=== PATIENT | male | born 1950 | race Caucasian/White ===

== ENCOUNTER → 2018-04-15 | Outpatient (CLI) | payer MEDICARE, OTHER ==
[~2018-04-15] MED LIST: ASPI81EC; ATEN50
== END | disposition home or self-care (01) ==
LOC: PLD 11:53 → LAB SHORT 11:53
DX: D22.5 Melanocytic nevi of trunk (principal)
CPT/HCPCS: 88305

== ENCOUNTER 2018-12-10 00:02 | Inpatient (IN) | payer MEDICARE, OTHER ==
[~2018-12-10] VITALS: Ht 182.9 cm; Wt 121.4 kg
[~2018-12-10 00:02] MED LIST changes: -ASPI81EC; +Aspirin EC81 MG PO
[2018-12-10] MEDS ORDERED: Hair, Skin & N1 EACH PO (00:27)
[2018-12-10] MEDS ORDERED: Natural Vita400 UNIT PO (00:28)
[2018-12-10] MEDS ORDERED: PIRO20 PO (00:29)
[2018-12-10] MEDS ORDERED: ATECHL PO (00:29)
[2018-12-10 02:42] LABS: BASOPHILS ABSOLUTE AUTO 0.05 K/mm3 (0.00-0.23); BASOPHILS PERCENT AUTO 0 % (0-2); EOSINOPHILS PERCENT AUTO 0 % (0-6); Hematocrit 40.2 % (37.0-53.0); Hemoglobin 13.6 g/dL (13.5-17.5); IMMATURE GRAN ABSOLUTE AUTO 0.12 K/mm3 (0.00-0.10); IMMATURE GRAN PERCENT AUTO 1 % (0-1); LYMPHOCYTES ABSOLUTE AUTO 2.16 K/mm3 (0.84-5.20); LYMPHOCYTES PERCENT AUTO 17 % (21-46); MONOCYTES ABSOLUTE AUTO 1.65 K/mm3 (0.16-1.47); MONOCYTES PERCENT AUTO 13 % (4-13); Mean Corpuscular HGB 29.3 pg (26.0-34.0); Mean Corpuscular HGB Conc 33.8 g/dL (31.5-36.5); Mean Corpuscular Volume 87 fL (80-100); Mean Platelet Volume 12.4 fL (9.1-12.4); NEUTROPHILS ABSOLUTE AUTO 8.94 K/mm3 (1.96-9.15); NEUTROPHILS PERCENT AUTO 69 % (41-73); Platelet Count 114 K/mm3 (150-400); RDW Coefficient Variation 14.3 % (11.7-14.2); RDW Standard Deviation 45.9 fL (35.1-46.3); Red Blood Cell Count 4.64 M/mm3 (4.30-5.90); White Blood Cell Count 12.92 K/mm3 (4.00-11.30)
[2018-12-10 02:54] LABS: Albumin, Blood 3.2 g/dL (3.4-5.0); Albumin/Globulin Ratio 0.8 (0.8-1.8); Bilirubin, Total 1.4 mg/dL (0.1-1.0); Calcium, Blood 8.4 mg/dL (8.5-10.1); Creatinine, Blood 1.78 mg/dL (0.60-1.20); Globulin, Blood 4.1 g/dL (2.2-4.0); Potassium, Blood 3.6 mmol/L (3.5-5.5); Total Protein, Blood 7.3 g/dL (6.4-8.2)
[2018-12-10 03:03] LABS: International Normalized Ratio 1.25
[2018-12-10 03:12] LABS: Troponin I 0.128 ng/mL (0.000-0.040)
[2018-12-10 03:26] LABS: Creatine Kinase MB 23.8 ng/mL (0.0-3.6); Creatine Kinase MB Index 2.4 (0.0-4.0)
[2018-12-10] MEDS ORDERED: LOSA50 PO (04:10)
[2018-12-10 04:41] LABS: Hematocrit 41.5 % (37.0-53.0); Hemoglobin 13.8 g/dL (13.5-17.5); Mean Corpuscular HGB 28.9 pg (26.0-34.0); Mean Corpuscular HGB Conc 33.3 g/dL (31.5-36.5); Mean Corpuscular Volume 87 fL (80-100); Mean Platelet Volume 11.1 fL (9.1-12.4); Platelet Count 105 K/mm3 (150-400); RDW Coefficient Variation 14.2 % (11.7-14.2); RDW Standard Deviation 45.6 fL (35.1-46.3); Red Blood Cell Count 4.78 M/mm3 (4.30-5.90); White Blood Cell Count 12.87 K/mm3 (4.00-11.30)
[2018-12-10 04:58] LABS: Albumin, Blood 3.1 g/dL (3.4-5.0); Albumin/Globulin Ratio 0.7 (0.8-1.8); Bilirubin, Total 1.5 mg/dL (0.1-1.0); Bun/Creatinine Ratio 31.5 (12.0-20.0); Calcium, Blood 8.6 mg/dL (8.5-10.1); Creatinine, Blood 1.68 mg/dL (0.60-1.20); Globulin, Blood 4.4 g/dL (2.2-4.0); Potassium, Blood 3.8 mmol/L (3.5-5.5); Total Protein, Blood 7.5 g/dL (6.4-8.2)
--- NOTE | 2018-12-10 05:02 | NUR ---
LACTIC OF 5.1 DR LA NOTIFIED OF LACTIC LEVEL. NO NEW ORDERS GIVEN AT THIS TIME.
[2018-12-10 05:32] LABS: Adenovirus Not Detected (NOT DETECT); Bordetella pertussis Not Detected (NOT DETECT); Chlamydophila pneumoniae Not Detected (NOT DETECT); Coronavirus 229E Not Detected (NOT DETECT); Coronavirus HKU1 Not Detected (NOT DETECT); Coronavirus NL63 Not Detected (NOT DETECT); Coronavirus OC43 Not Detected (NOT DETECT); Human Metapneumovirus Not Detected (NOT DETECT); Human Rhinovirus/Enterovirus Not Detected (NOT DETECT); Influenza A Not Detected (NOT DETECT); Influenza A/2009-H1 Not Detected (NOT DETECT); Influenza A/H1 Not Detected (NOT DETECT); Influenza A/H3 Not Detected (NOT DETECT); Influenza B Not Detected (NOT DETECT); Mycoplasma pneumoniae Not Detected (NOT DETECT); Parainfluenza Virus 1 Not Detected (NOT DETECT); Parainfluenza Virus 2 Not Detected (NOT DETECT); Parainfluenza Virus 3 Not Detected (NOT DETECT); Parainfluenza Virus 4 Not Detected (NOT DETECT); Respiratory Syncytial Virus Not Detected (NOT DETECT)
--- NOTE | 2018-12-10 07:24 | NUR ---
NA OF 128 DR LA NOTIFIED AT APPROX 0620. NO FURTHER ORDERS GIVEN AT THAT TIME.
--- NOTE | 2018-12-10 07:25 | NUR ---
SHIFT SUMMARY PATIENT ADMITTED FROM THE ER AND WAS ABLE TO TRANSFER SELF FROM THE RNEY TO BED WITH SBA ASSIST. PATIENT VERY SOB WITH EXERTION. PATIENT ON 3L VIA N/C AND IS ATTEMPTING TO USE THE CPAP BUT STATES THAT IT MAKES HIM FEEL MORE SHORT OF BREATH. PATIENT HAD CT DONE THIS AM. PATIENT CURRENTLY RESTING IN BED. IN RECLINER AT THE BEDSIDE. WILL CONTINUE TO MONITOR PATIENT AND REPORT TO ONCOMING RN.
--- NOTE | 2018-12-10 09:04 | NUR ---
pt laying in bed awake a/ox3, pleasant and cooperative with care, follows commands well, denies pain, lungs are clear t/o, pt feels sob, and is mildly laboring, he is currently on 3 liters via n/c, no cough noted, hrr, tele in place running aflutter per monitor, see strip, no edema noted, ppp+2, cap refill <3sec, vs stable, afebrile, iv site to left hand is hurting this was removed, also one to left ac, flushes well, btx4, abd round soft nontender, voids without diff, skin c/w/d, maew, sandra, call light in reach. call to Dr. Lopez regarding lactic acid, he came to see him.
[2018-12-10 10:03] LABS: PCO2 Arterial 33.4 mmHg (35-45); PO2 Arterial 73.1 mmHg (80-100); pH Blood Arterial 7.39 (7.35-7.45)
--- NOTE | 2018-12-10 11:17 | NUR ---
PT HAVING AN U/S DONE, DR. ANGULO SPEAKING WITH HIS . WILL HAVE A BIOPSY THIS AFTERNOON ABOUT 1430, WILL KEEP NPO. TWO CONSULTS WERE ORDERED, DR. ANGULO SPOKE TO DR. PRIETO AND DR. LEIJA. CALL LIGHT IN REACH.
[2018-12-10 11:31] LABS: Source, Urine Clean Catch
[2018-12-10 11:37] LABS: Bilirubin, Urine Neg (Neg); Blood, Urine 3+ (Neg); Glucose Qualitative, Urine Neg (Neg); Ketones, Urine Neg (Neg); Leukocyte Esterase, Urine Neg (Neg); Nitrite, Urine Neg (Neg); Protein, Urine 2+ (Neg); Specific Gravity, Urine 1.015 (1.003-1.022); Urobilinogen, Urine NORM (Normal)
[2018-12-10 11:44] LABS: Troponin I 0.072 ng/mL (0.000-0.040)
[2018-12-10 11:56] LABS: U Amphetamine Screen Not Detected; U Barbituate Screen Not Detected; U Benzodiazapine Screen Not Detected; U Buprenorphine Screen Not Detected; U Cannabinoids Screen Not Detected; U Cocaine Screen Not Detected; U Methadone Screen Not Detected; U Methamphetamine Screen Not Detected; U Opiates Screen Not Detected; U Oxycodone Screen Not Detected; U Phencyclidine Screen Not Detected; U Propoxyphene Screen Not Detected
[2018-12-10 12:00] LABS: Creatine Kinase MB 27.4 ng/mL (0.0-3.6); Creatine Kinase MB Index 2.5 (0.0-4.0)
[2018-12-10 12:06] LABS: Appearance, Urine Clear (Clear); Color, Urine Yellow (P-Yellow)
[2018-12-10 12:08] LABS: Bacteria Few /hpf; Squamous Epithelial Cells Rare /hpf (Few); White Blood Cells, Urine 0-2 /hpf (0-5)
--- NOTE | 2018-12-10 12:21 | NUR ---
Echocardiogram completed.
[2018-12-10 12:49] LABS: Creatinine, Urine Random 68.7 mg/dL (27.00-270.00)
--- NOTE | 2018-12-10 13:42 | NUR ---
pt went down for biopsy via suhail with day surg nurse.
--- NOTE | 2018-12-10 14:43 | NUR ---
12/10/18 1443 Yandy Alonso PT ON SCHEDULED ANTIBIOTIC
--- NOTE | 2018-12-10 15:51 | NUR ---
1445-DR. TARIQ IN TO ASSESS PT. PT ROUSES NOW BUT ONLY BRIEFLY AND WILL NOT COUGH.
--- NOTE | 2018-12-10 15:57 | NUR ---
1405 Assumed care of the patient from Sinai Morataya RN. The pt had been taken to day surgery for a biopsy of the lymph node.
--- NOTE | 2018-12-10 16:00 | NUR ---
Report received from Azra in PACU at this time. States the pt is on 4 l/min n.c. O2 and spo2 is 92-93%. States pt is awake, and able to cough. Anticipate pt return to PCU 1 shortly.
--- NOTE | 2018-12-10 16:24 | NUR ---
Returned from PACU; He is sleepy, but awakens to verbal and gentle tactile stimuli. He is talking witha friend named Grant at the bedside at this time. Vital signs taken and stable. Denies pain.
--- NOTE | 2018-12-10 16:25 | NUR ---
I was told in report from [facility]urel TRAVELIFT OPERATOR that the EKG was done pre-op, and showed Normal sinus rhythm.
[2018-12-10 19:45] LABS: Performing Lab SYMBIODX; Test Name LYMPH NODE
--- NOTE | 2018-12-10 19:45 | NUR ---
The pt returned to the room at approximately 1625, and was able to awaken easily and answer questions. Still sleepy. Right groin site noted to be with gauze dressing and clear tegederm covering it, clean, dry and intact. Distal pulses on the right lower extremity are palpable, and there is good cap refill. The pt has been sleepy since arrival to PCU, but awakening easily throughout the end of the shift. At 1819, noted that his spo2 was 88-89% on 2 l/min of oxygen delivery, so it was increased to 3 l/min and his spo2 improved to 92-93% while sleeping. HOB is elevated at 30 degrees. His is at the bedside, and states that he has been sleeping. Bedside handoff was given to Pau Amaya and Atul Chávez, and the pt awakened briefly to talk to us. At that time the right groin site was assessed by us, and noted to be unchanged from prior assessments.
--- NOTE | 2018-12-11 05:55 | NUR ---
END OF SHIFT SUMMARY ASSUMED CARE OF PT AT 1900. PT ALERT AND ORIENTED, TALKING WITH STAFF. AT BEDSIDE. PT'S R GROIN SITE POST BIOPSY INTACT, NO NEW BLEEDING NOTED. AREA DOES NOT PRESENT HARD OR TENDER TO TOUCH. VSS T/O SHIFT. PT HAS REMAINED ON 3L NC WHILE SLEEPING. CPAP HAS REMAINED AT BEDSIDE UNUSED, PT DOES NOT TOLERATE WELL. PT WAS SINUS RHYTHM UPON SHIFT CHANGE, CONVERTED TO AFLUTTER, AND THE RECONVERTED TO SINUS RHYTHM DURING THE NIGHT. PT ASYMPTOMATIC DURING THOSE TIMES. PT HAS REQUIRED VERY LITTLE ASSITANCE THIS SHIFT. PT HAS APPEARED TO HAVE SLEPT T/O MAJORITY OF SHIFT. CALL LIGHT HAS BEEN WITRHIN REACH AT ALL TIMES. WILL CONTINUE TO MONITOR PT UNTIL SHIFT CHANGE.
--- NOTE | 2018-12-11 07:40 | NUR ---
pt laying in bed in room, awake a/ox3, pleasant and cooperative with care, follows commands well, denies pain, states he is feeling a lot better did not use bipap last night, sleept really hard last night, lungs are clear t/o, resp even and unlabored, no cough noted, is on 3 liters 02 via n/c, hrr, tele in place running sr per monitor, see strip, no edema noted, ppp+2, cap refill <3sec, vs stable, afebrile, iv site to lac and rfa infusing ns at 100mls/hr sites are clear and patent, btx4, hypoactive, reports no bm for 3 days, but hasn't been eating and does not feel constipated, reports he is having trouble voiding, feels strong urge to go, but can't get going. skin has surg site to right groin from lymph node biopsy yesterday, dressing in place no drainage noted, bandar, up ad amina in room, sandra, call light in reach.
[2018-12-11 09:09] LABS: Hematocrit 34.5 % (37.0-53.0); Hemoglobin 11.6 g/dL (13.5-17.5); Mean Corpuscular HGB 29.4 pg (26.0-34.0); Mean Corpuscular HGB Conc 33.6 g/dL (31.5-36.5); Mean Corpuscular Volume 87 fL (80-100); Mean Platelet Volume 11.6 fL (9.1-12.4); Platelet Count 106 K/mm3 (150-400); RDW Coefficient Variation 14.7 % (11.7-14.2); RDW Standard Deviation 47.5 fL (35.1-46.3); Red Blood Cell Count 3.95 M/mm3 (4.30-5.90); White Blood Cell Count 9.82 K/mm3 (4.00-11.30)
[2018-12-11 09:26] LABS: Anion Gap 8 mmol/L (6-16); Blood Urea Nitrogen 59 mg/dL (8-24); Bun/Creatinine Ratio 47.2 (12.0-20.0); CO2, Blood 25 mmol/L (21-32); CPK Creatine Kinase 277 U/L (39-308); Calcium, Blood 8.2 mg/dL (8.5-10.1); Chloride, Blood 96 mmol/L (98-108); Creatinine, Blood 1.25 mg/dL (0.60-1.20); Glomerular Filtration Rate >60 (60-); Glucose, Blood 200 mg/dL (70-99); Potassium, Blood 3.7 mmol/L (3.5-5.5); Sodium, Blood 129 mmol/L (136-145)
[2018-12-11 09:37] LABS: BAND PERCENT MAN 4 % (0-8); BASOPHILS PERCENT MAN 0 % (0-2); EOSINOPHILS PERCENT MAN 0 % (0-6); LYMPHOCYTES ABSOLUTE MAN 2.06 K/mm3 (0.84-5.20); LYMPHOCYTES PERCENT MAN 21 % (21-46); MONOCYTES ABSOLUTE MAN 0.29 K/mm3 (0.16-1.47); MONOCYTES PERCENT MAN 3 % (4-13); NEUTROPHILS ABSOLUTE MAN 7.46 K/mm3 (1.96-9.15); SEG NEUTROPHILS PERCENT MAN 72 % (41-73); TOTAL CELLS COUNTED 100
[2018-12-11 10:53] LABS: Source, Urine Clean Catch
[2018-12-11 10:57] LABS: Bilirubin, Urine Neg (Neg); Blood, Urine 1+ (Neg); Glucose Qualitative, Urine Neg (Neg); Ketones, Urine Neg (Neg); Leukocyte Esterase, Urine Neg (Neg); Nitrite, Urine Neg (Neg); Protein, Urine 2+ (Neg); Specific Gravity, Urine 1.015 (1.003-1.022); Urobilinogen, Urine 1+ (Normal)
[2018-12-11 11:04] LABS: Appearance, Urine Clear (Clear); Color, Urine Yellow (P-Yellow)
[2018-12-11 11:06] LABS: Bacteria Few /hpf; Red Blood Cells, Urine 0-2 /hpf (0-2); Squamous Epithelial Cells Not Seen /hpf (Few)
[2018-12-11 11:07] LABS: Granular Casts 0-2 /lpf (0)
--- NOTE | 2018-12-11 12:14 | NUR ---
pt had a post void bladder scan that was 459, notified Dr. Lopez. he said to continue them with each void, if >500 will need to do an in and out, he was also started on flomax. at bedside. pt vs stable. doing well. had a shower this am. call light in reach.
--- NOTE | 2018-12-11 15:00 | NUR ---
PT HAS BEEN CHANGED TO MEDICAL FLOOR STATUS, HE HAS BEEN INFORMED. CALLED REPORT TO STEPH ALBERTO. WILL TRANSFER VIA WHEELCHAIR WITH ASSISTANT PROFESSOR IN FAMILY STUDIES IN ATTENDENCE, AND ALL BELONGINGS WITH PT.
--- NOTE | 2018-12-11 15:08 | NUR ---
LEFT VIA BED WITH LENS MATCHER'S IN ATTENDENCE.
--- NOTE | 2018-12-11 19:12 | NUR ---
SHIFT SUMMARY- PT PCU TRANSFER THIS AFTERNOON. AXO X4. PT DENIES PAIN. DENIES SOB. 95% ON RA. RESP E/U. DENIES N/V. FAMILY AT BEDSIDE. INDEPENDENT IN THE ROOM. NO OTHER SIGNIFICANT CHANGES THIS SHIFT.
[2018-12-11 19:28] LABS: Result SEE PATHOTH RESULTS
--- NOTE | 2018-12-12 05:39 | NUR ---
SHIFT SUMMARY: PT DENIES SOB OR DISCOMFORT TONIGHT. TOLERATING RA, RESP E/U AND O2 SATS 93%. PVR DONE: 471, 273, AND 439. STRAIGHT CATH PARAMETERS FOR PVR >500ML. PT IS A&O, INDEPENDENT IN RM. R INGUINAL SURG SITE/DRESSING C/D/I. NO OTHER CHANGES TO REPORT WILL CONT TO [facility] AND PROVIDE CARE UNTIL PRESUMED BY ONCOMING RN.
[2018-12-12 09:38] LABS: Uric Acid, Blood 7.1 mg/dL (3.5-7.2)
--- NOTE | 2018-12-12 18:07 | NUR ---
PT CALM AND COOPERATIVE THROUGHOUT SHIFT. PT A&OX3. PT HAS HAD MULTIPLE VISITORS THROUGHOUT THE SHIFT. PT SELF-AMBULATING TO THE BATHROOM. PT REPORTS GENERALIZED DISCOMFORT IN HIS CHEST/ABDOMEN. PT REPORTS NO BM IN 48 HOURS AND HAS BEEN MEDICATED PER REQUEST TO PREVENT CONSTIPATION, WITH NO BM REPORTED AT THIS TIME. INGUINAL SURGICAL SITE CDI. WILL CONTINUE TO MONITOR.
--- NOTE | 2018-12-12 18:25 | NUR ---
SN AM ASSESSMENT I AGREE WITH THE STUDENT FAITH'S AM ASSESSMENT, THE PT HAD AN EXPIRATORY WHEEZE THAT CLEARED WITH HIS COUGH
--- NOTE | 2018-12-12 21:35 | NUR ---
CONSTIPATOIN PT CONTINUES TO NOT PRODUCE BM AFTER ORAL LAXATIVE AND STOOL SOFTENERS. GOAL IS TO HAVE PT HAVE BM BEFORE SURGERY TOMORROW. WILL ADMINISTER SUPPOSITORY AT THIS TIME.
--- NOTE | 2018-12-13 00:53 | NUR ---
SUPPOSITORY UNSUCCESSFUL. PT HAS NOT HAD BM, BUT IS HAVING GAS. ADMINISTERING ENEMA IN ORDER TO REACH GOAL OF BM PRIOR TO SURGERY
--- NOTE | 2018-12-13 01:23 | NUR ---
ENEMA UNSUCCESSFUL. PT WALKING HALLS TO PROMOTE GI MOTILITY.
[2018-12-13 05:57] LABS: Anion Gap 6 mmol/L (6-16); Blood Urea Nitrogen 44 mg/dL (8-24); Bun/Creatinine Ratio 40.4 (12.0-20.0); CO2, Blood 28 mmol/L (21-32); Calcium, Blood 8.2 mg/dL (8.5-10.1); Chloride, Blood 102 mmol/L (98-108); Creatinine, Blood 1.09 mg/dL (0.60-1.20); Glomerular Filtration Rate >60 (60-); Glucose, Blood 99 mg/dL (70-99); Potassium, Blood 4.1 mmol/L (3.5-5.5); Sodium, Blood 136 mmol/L (136-145)
--- NOTE | 2018-12-13 06:45 | NUR ---
SHIFT SUMMARY: PT STILL NO BM TONIGHT, EVEN AFTER ADMINISTRATION OF SUPPOSITORY, ENEMA, AND EXCERISE. PT DENIES EVEN HAVING AN URGE. WILL REPORT TO DAYSHIFT RN TO DISCUSS c ATTENDING DR. MIN NPO SINCE MINDIGHT FOR PLACEMENT OF MEDIPORT. PT AND DAUGHTER, AT BEDSIDE, ARE BOTH IN GOOD SPIRITS AND OPTIMISTIC ABOUT THE FUTURE. WILL CONT TO MONITOR AND PROVIDE CARE UNTIL PRESUMED BY ONCOMING RN.
--- NOTE | 2018-12-13 18:12 | NUR ---
End of shift note: Pt is A&O, calm and cooperative throughout this shift. Pt had a mediport placement procedure this AM. Pt returned from the procedure free from distress. Pt has been sitting in the bed with multiple visitors. Surgical site dressing is CDI. Pt still concerned about no BM since admission. Urine retention post-void has been 150-250ml throughout the shift. Pt states no further needs at this time. Will continue to monitor.
--- NOTE | 2018-12-13 19:05 | NUR ---
SN ASSESSMENT I AGREE AND WAS PRESENT THIS AM DURING THE SN CUEVAS'S AM ASSESSMENT
--- NOTE | 2018-12-13 19:09 | NUR ---
PT IS A/OX3, UP IND, I AGREE WITH THE SN AM ASSEMENT, THE PT TAKEN TO THE OR TODAY FOR MEDIPORT PLACEMENT AND TOLERATED THE PROCEDURE WELL, THE PT REPORTED THAT HE STILL FELT THAT HE WAS STILL UNABLE TO HAVE A SIGNIFICANT BM, PT WAS MEDICATED FOR BOWEL CARE T/O THE DAY, CALL LIGHT IN REACH, MULTIPLE FAMILY AT THE BEDSIDE, NO OTHER CHANGES NOTICED
--- NOTE | 2018-12-14 07:44 | NUR ---
SHIFT SUMMARY: PT HAS NEW MEDIPORT TO R CHEST WALL. DRESSING IS C/D/I, SMALL AMOUNT OF DRIED BLOOD ON DRESSING. MEDIPORT IS ACCESSED AND READY FOR CHEMO THAT WILL TAKE PLACE THIS AM BY CHEMO RN. PT REPORTS SOME DISCOMFORT TO THE SITE, BUT "NOTHING SERIOUS". VSS. ADMINISTERED SUPPOSITORY TONIGHT -- PT HAS BM THIS MORNING. PT REPORTS THE BM IS "BLACK AND HARD" BUT WAS FLUSHED BEFORE RN COULD ASSESS. ASKED PT TO PRESS CALL LT TO ASSESS STOOL PRIOR TO FLUSHING NEXT BM. PT AGREEABLE AND UNDERSTANDING. PT REMAINS OPTIMISTIC AND HAS AN EXCELLENT SUPPORT SYSTEM, FAMILY CONSTANTLY AT BEDSIDE. NO OTHER CHANGES TO REPORT. WILL CONT TO MONITOR AND PROVIDE CARE UNTIL PRESUMED BY ONCOMING RN.
--- NOTE | 2018-12-14 16:57 | NUR ---
SLEEPING. APPEARS TO BE TOLERATING CHEMO. NO N/V. WCTM.
--- NOTE | 2018-12-14 18:59 | NUR ---
ALERT AND ORIENTED. COOPERATIVE. PLEASANT. TOLERATING CHEMO, NO FEVER ,N/V OR HYPOTENSION. AMBULATORY WITH STEADY GAIT IN ROOM. DENIES PAIN. REPORT TO NIGHT NURSE
--- NOTE | 2018-12-14 20:18 | NUR ---
PT RESTING QUIETLY, SUPINE, WITH AT BS DURING SHIFT REPORT. PT PRESENTLY RECEIVING CHEMO TX TO [facility]. PT HAS TOLERATED ALL CHEMO WELL TO PRESENT. CONTINUES TO REPORT NO ISSUES AND IS AWARE TO CALL FOR ANY CHANGES. CHEMO RITUXIMAB IS INFUSING AT 1/2 RATE FOR PRECAUTIONS, PER DR RADER AND DAY REMY HUFF. INFUSION RATE INCREASED EVERY 30 MINS. VS REMAIN STABLE. PT'S REPORTED PT HAS SLEPT MOST OF AFTERNOON TODAY D/T BENEDRYL AND NOT SLEEPING MUCH PREVIOUS NIGHTS. REMAINS AT BS WATCHING PT. PT WAKES EASILY FOR CARE AND IS ABLE TO MAKE NEEDS KNOWN. CALL LT IN REACH.
--- NOTE | 2018-12-15 04:33 | NUR ---
SHIFT SUMMARY LAST CHEMO COMPLETE AT 0140. MEDIPORT FLUSHED AND SL. PT TOLERATED CHEMO TX'S WELL TO PRESENT. PT ABLE TO SLEEP THRU MOST OF ENTIRE SHIFT. WAKES EASILY FOR CARE, BUT GOES RIGHT BACK TO SLEEP. UP TO BTHRM WITH SBA FROM . PT REPORTS SEVERE URGENCY WHEN NEEDING TO VOID. PVR CHECK'D, SEE CHART. DENIED ANY S/E FROM CHEMO TO PRESENT. REPORTED THAT HE FELT FINE. ENCOURAGED PT TO DRINK FLUIDS. PT DID NOT EAT ANY DINNER. NO FURTHER CHANGES TO REPORT. CALL LT IN REACH.
[2018-12-15 13:29] LABS: BASOPHILS ABSOLUTE AUTO 0.01 K/mm3 (0.00-0.23); BASOPHILS PERCENT AUTO 0 % (0-2); EOSINOPHILS PERCENT AUTO 0 % (0-6); Hematocrit 34.2 % (37.0-53.0); Hemoglobin 11.3 g/dL (13.5-17.5); IMMATURE GRAN ABSOLUTE AUTO 0.33 K/mm3 (0.00-0.10); IMMATURE GRAN PERCENT AUTO 3 % (0-1); LYMPHOCYTES ABSOLUTE AUTO 2.62 K/mm3 (0.84-5.20); LYMPHOCYTES PERCENT AUTO 20 % (21-46); MONOCYTES ABSOLUTE AUTO 0.45 K/mm3 (0.16-1.47); MONOCYTES PERCENT AUTO 4 % (4-13); Mean Corpuscular HGB 28.8 pg (26.0-34.0); Mean Corpuscular Volume 87 fL (80-100); Mean Platelet Volume 10.4 fL (9.1-12.4); NEUTROPHILS ABSOLUTE AUTO 9.54 K/mm3 (1.96-9.15); NEUTROPHILS PERCENT AUTO 74 % (41-73); Platelet Count 196 K/mm3 (150-400); RDW Coefficient Variation 14.4 % (11.7-14.2); RDW Standard Deviation 45.5 fL (35.1-46.3); Red Blood Cell Count 3.92 M/mm3 (4.30-5.90); White Blood Cell Count 12.95 K/mm3 (4.00-11.30)
[2018-12-15 13:45] LABS: Albumin, Blood 2.8 g/dL (3.4-5.0); Albumin/Globulin Ratio 0.8 (0.8-1.8); Bilirubin, Total 0.4 mg/dL (0.1-1.0); Bun/Creatinine Ratio 28.1 (12.0-20.0); Calcium, Blood 8.1 mg/dL (8.5-10.1); Creatinine, Blood 1.28 mg/dL (0.60-1.20); Globulin, Blood 3.6 g/dL (2.2-4.0); Potassium, Blood 4.6 mmol/L (3.5-5.5); Total Protein, Blood 6.4 g/dL (6.4-8.2); Uric Acid, Blood 4.2 mg/dL (3.5-7.2)
--- NOTE | 2018-12-15 18:35 | NUR ---
NO ACUTE CHANGES THIS SHIFT. PT HAD NO COMPLAINTS THIS SHIFT.
--- NOTE | 2018-12-16 04:24 | NUR ---
SHIFT SUMMARY PT SITTING UP TO EOB DURING SHIFT REPORT. C/O NAUSEA JUST PRIOR TO START OF SHIFT, BUT ABLE TO EAT SOME OF DINNER AND FELT BETTER. PT UP TO BTHRM INDEPENDENTLY AND THEN C/O NAUSEA RETURNING AGAIN. ZOFRAN GIVEN PER EMAR AND PT REPORTED THAT HE DID FEEL BETTER. C/O CONSTIPATION AGAIN AT START OF SHIFT. MORE BOWEL CARE GIVEN AT HS. PT COUGHING QUITE A BIT AT START OF SHIFT. REPORTS DRY HACKING COUGH. PT'S REPORTED HACKING COUGH STARTED SINCE LYMPHOMA DX. PT REPORTED NO FURTHER CHEMO TX THIS ADMIT. WILL START OUT/PT TX IN 3 WKS. POSSIBLE D/C TODAY. DENIED FURTHER NEEDS. CALL LT IN REACH.
[2018-12-16] MEDS ORDERED: ALLO300 PO (11:20)
[2018-12-16] MEDS ORDERED: Ondansetron Odt8 MG PO (11:21)
--- NOTE | 2018-12-16 13:30 | NUR ---
1245 PATIENT HAD IV REMOVED PRIOR TO DISCHARGE. NO SS OF INFECTION NOTED. MEDIPORT DEACCESSED. PATIENT AND FAMILY PACKED UP BELONGINGS. NURSE WENT OVER DISCHARGE PAPERS WITH PATIENT AND FAMILY. MEDS CALLED INTO PHARMACY OF CHOICE. NURSE WALKED PATIENT TO CAR AND PATIENT TAKEN HOME.
== END 2018-12-16 13:10 | disposition home or self-care (01) | DRG 823 ==
LOC: ER 00:02 → PCU 02:35 → MEDS 02:35 → PCU 03:40 → MEDS 12-11 15:30 → ENPENDDIS 12-16 10:34 → MEDS 12-16 13:10
PROVIDERS: Internal Medicine; Internal Medicine Hematology & Oncology; ADMIT Internal Medicine
PROC: 07BH3ZX Excision of Right Inguinal Lymphatic, Percutaneous Approach, Diagnostic (ICD-10-PCS; principal; 2018-12-12)
PROC: 02HV33Z Insertion of Infusion Device into Superior Vena Cava, Percutaneous Approach (ICD-10-PCS; 2018-12-13)
DX: C85.90 Non-Hodgkin lymphoma, unspecified, unspecified site (principal); I50.33 Acute on chronic diastolic (congestive) heart failure; J96.01 Acute respiratory failure with hypoxia; E87.1 Hypo-osmolality and hyponatremia; R59.9 Enlarged lymph nodes, unspecified; K59.00 Constipation, unspecified; R19.7 Diarrhea, unspecified
CPT/HCPCS: 36415; 36600; 74176; 80048; 80053; 81001; 82550; 82553; 82570; 82803; 83605; 83615; 83880; 84145; 84300; 84484; 84550; 85025; 85027; 85610; 87086; 87486; 87581; 87633; 87798; 88184; 88185; 88305; 88341; 88342; 93005; 93010; 93306; 94660; 94667; 94762; 96374; 99285-25; C1788; J0690; J1100; J1200; J1642; J1650; J1940; J1956; J2250; J2405; J2704; J2930; J3010; J7030; J7040; J7050; J7060; J7120; J7512; J9000; J9070; J9312; J9370

== ENCOUNTER 2019-01-05 08:24 | Day surgery (SDC) | payer MEDICARE, OTHER ==
[2019-01-04 11:55] LABS: BASOPHILS ABSOLUTE AUTO 0.07 K/mm3 (0.00-0.23); BASOPHILS PERCENT AUTO 1 % (0-2); EOSINOPHILS ABSOLUTE AUTO 0.01 K/mm3 (0.00-0.68); EOSINOPHILS PERCENT AUTO 0 % (0-6); Hematocrit 23.3 % (37.0-53.0); Hemoglobin 7.5 g/dL (13.5-17.5); IMMATURE GRAN ABSOLUTE AUTO 0.33 K/mm3 (0.00-0.10); IMMATURE GRAN PERCENT AUTO 4 % (0-1); LYMPHOCYTES ABSOLUTE AUTO 1.38 K/mm3 (0.84-5.20); LYMPHOCYTES PERCENT AUTO 15 % (21-46); MONOCYTES ABSOLUTE AUTO 0.64 K/mm3 (0.16-1.47); MONOCYTES PERCENT AUTO 7 % (4-13); Mean Corpuscular HGB 29.4 pg (26.0-34.0); Mean Corpuscular HGB Conc 32.2 g/dL (31.5-36.5); Mean Corpuscular Volume 91 fL (80-100); Mean Platelet Volume 10.8 fL (9.1-12.4); NEUTROPHILS ABSOLUTE AUTO 6.63 K/mm3 (1.96-9.15); NEUTROPHILS PERCENT AUTO 73 % (41-73); Platelet Count 241 K/mm3 (150-400); RDW Standard Deviation 49.7 fL (35.1-46.3); Red Blood Cell Count 2.55 M/mm3 (4.30-5.90); White Blood Cell Count 9.06 K/mm3 (4.00-11.30)
[2019-01-04 12:18] LABS: Alanine Aminotransfer (ALT/SGP 24 U/L (12-78); Alk Phos 71 U/L (50-136); Anion Gap 6 mmol/L (6-16); Aspartate Aminotrans (AST/SGOT 14 U/L (12-37); Bilirubin, Total 0.4 mg/dL (0.1-1.0); Blood Urea Nitrogen 18 mg/dL (8-24); Bun/Creatinine Ratio 19.9 (12.0-20.0); CO2, Blood 27 mmol/L (21-32); Chloride, Blood 105 mmol/L (98-108); Creatinine, Blood 0.91 mg/dL (0.60-1.20); Globulin, Blood 3.1 g/dL (2.2-4.0); Glomerular Filtration Rate >60 (60-); Glucose, Blood 114 mg/dL (70-99); Potassium, Blood 3.7 mmol/L (3.5-5.5); Sodium, Blood 138 mmol/L (136-145); Total Protein, Blood 6.1 g/dL (6.4-8.2)
[~2019-01-05 08:24] MED LIST changes: +ALLO300 PO; +ATECHL PO; +Hair, Skin & N1 EACH PO; +LOSA50 PO; +Natural Vita400 UNIT PO; +Ondansetron Odt8 MG PO; +PIRO20 PO
[2019-01-05] MEDS ORDERED: LEVO750 PO (11:14)
== END 2019-01-05 12:32 | disposition home or self-care (01) ==
LOC: LAB 08:24 → ATC 08:24
PROVIDERS: Internal Medicine Hematology & Oncology
DX: C83.38 Diffuse large B-cell lymphoma, lymph nodes of multiple sites (principal); D64.9 Anemia, unspecified; Z87.891 Personal history of nicotine dependence; Z79.82 Long term (current) use of aspirin; Z79.899 Other long term (current) drug therapy
CPT/HCPCS: 36430; 80053; 85025; 86850; 86900; 86901; 86923; J1642; J7050; P9016

== ENCOUNTER → 2019-02-17 | Outpatient (CLI) | payer OTHER, MEDICARE ==
[~2019-02-17] MED LIST changes: +LEVO750 PO
[2019-02-17 12:22] LABS: BASOPHILS ABSOLUTE AUTO 0.02 K/mm3 (0.00-0.23); BASOPHILS PERCENT AUTO 0 % (0-2); EOSINOPHILS PERCENT AUTO 0 % (0-6); Hemoglobin 9.2 g/dL (13.5-17.5); IMMATURE GRAN ABSOLUTE AUTO 0.11 K/mm3 (0.00-0.10); IMMATURE GRAN PERCENT AUTO 2 % (0-1); LYMPHOCYTES PERCENT AUTO 6 % (21-46); MONOCYTES ABSOLUTE AUTO 0.68 K/mm3 (0.16-1.47); MONOCYTES PERCENT AUTO 13 % (4-13); Mean Corpuscular HGB 26.7 pg (26.0-34.0); Mean Corpuscular HGB Conc 31.7 g/dL (31.5-36.5); Mean Corpuscular Volume 84 fL (80-100); Mean Platelet Volume 10.4 fL (9.1-12.4); NEUTROPHILS ABSOLUTE AUTO 4.29 K/mm3 (1.96-9.15); NEUTROPHILS PERCENT AUTO 79 % (41-73); Platelet Count 231 K/mm3 (150-400); RDW Coefficient Variation 16.7 % (11.7-14.2); RDW Standard Deviation 51.6 fL (35.1-46.3); Red Blood Cell Count 3.45 M/mm3 (4.30-5.90)
== END | disposition home or self-care (01) ==
LOC: LAB SHORT 12:10 → LAB 12:10
PROVIDERS: Internal Medicine Hematology & Oncology
DX: C85.90 Non-Hodgkin lymphoma, unspecified, unspecified site (principal)
CPT/HCPCS: 85025

== ENCOUNTER 2019-03-19 11:33 | Day surgery (SDC) | payer MEDICARE, OTHER | END 2019-03-19 16:38 | disposition home or self-care (01) | LOC: ATC 11:33 | DX: E86.0 Dehydration (principal); C83.38 Diffuse large B-cell lymphoma, lymph nodes of multiple sites; Z87.891 Personal history of nicotine dependence | CPT/HCPCS: 96360; J1642; J7030 ==

== ENCOUNTER 2019-06-03 02:56 | Observation (INO) | payer OTHER, MEDICARE ==
[~2019-06-03] VITALS: Ht 182.9 cm; Wt 120.6 kg
[2019-06-03 03:10] LABS: PO2 Arterial 72.6 mmHg (80-100); pH Blood Arterial 7.41 (7.35-7.45)
[2019-06-03 03:17] LABS: BASOPHILS ABSOLUTE AUTO 0.03 K/mm3 (0.00-0.23); BASOPHILS PERCENT AUTO 1 % (0-2); EOSINOPHILS ABSOLUTE AUTO 0.14 K/mm3 (0.00-0.68); EOSINOPHILS PERCENT AUTO 4 % (0-6); Hematocrit 33.8 % (37.0-53.0); Hemoglobin 11.1 g/dL (13.5-17.5); IMMATURE GRAN ABSOLUTE AUTO 0.01 K/mm3 (0.00-0.10); IMMATURE GRAN PERCENT AUTO 0 % (0-1); LYMPHOCYTES ABSOLUTE AUTO 0.51 K/mm3 (0.84-5.20); LYMPHOCYTES PERCENT AUTO 16 % (21-46); MONOCYTES ABSOLUTE AUTO 0.67 K/mm3 (0.16-1.47); MONOCYTES PERCENT AUTO 20 % (4-13); Mean Corpuscular HGB 28.9 pg (26.0-34.0); Mean Corpuscular HGB Conc 32.8 g/dL (31.5-36.5); Mean Corpuscular Volume 88 fL (80-100); Mean Platelet Volume 9.3 fL (9.1-12.4); NEUTROPHILS ABSOLUTE AUTO 1.92 K/mm3 (1.96-9.15); NEUTROPHILS PERCENT AUTO 59 % (41-73); Platelet Count 206 K/mm3 (150-400); RDW Standard Deviation 48.2 fL (35.1-46.3); Red Blood Cell Count 3.84 M/mm3 (4.30-5.90); White Blood Cell Count 3.28 K/mm3 (4.00-11.30)
[2019-06-03 03:31] LABS: Alanine Aminotransfer (ALT/SGP 13 U/L (12-78); Albumin, Blood 3.6 g/dL (3.4-5.0); Albumin/Globulin Ratio 1.1 (0.8-1.8); Alk Phos 70 U/L (50-136); Anion Gap 8 mmol/L (6-16); Aspartate Aminotrans (AST/SGOT 12 U/L (12-37); Bilirubin, Total 0.5 mg/dL (0.1-1.0); Blood Urea Nitrogen 14 mg/dL (8-24); Bun/Creatinine Ratio 16.1 (12.0-20.0); CO2, Blood 25 mmol/L (21-32); Calcium, Blood 8.5 mg/dL (8.5-10.1); Chloride, Blood 106 mmol/L (98-108); Creatinine, Blood 0.87 mg/dL (0.60-1.20); Globulin, Blood 3.2 g/dL (2.2-4.0); Glomerular Filtration Rate >60 (60-); Glucose, Blood 106 mg/dL (70-99); Potassium, Blood 3.6 mmol/L (3.5-5.5); Sodium, Blood 139 mmol/L (136-145); Total Protein, Blood 6.8 g/dL (6.4-8.2); Troponin I 0.074 ng/mL (0.000-0.040)
[2019-06-03] MEDS ORDERED: Flomax0.4 MG PO (04:25)
[2019-06-03] MEDS ORDERED: ZOLP5 PO (04:25)
[2019-06-03] MEDS ORDERED: OMEPRAZOLE20 MG PO (04:26)
[2019-06-03] MEDS ORDERED: ABAT250V IV (04:26)
[2019-06-03] MEDS ORDERED: DILT30 PO (04:26)
--- NOTE | 2019-06-03 06:44 | NUR ---
PT ARRIVED ON MEDICAL UNIT AT 0520. WALKED FROM STRETCHER TO BED. APPEARS SOB WITH EXERTION, HOWEVER DENIES FEELING SOB. 02 SATS 975 ON RA. FREQUENT, DRY COUGH. COUGHS WHILE SPEAKING, STATES, "THIS IS NORMAL, I'M FINE". VOIDED 600CC SHORTLY AFTER ARRIVAL. URINE CLEAR, VERY LIGHT STRAW COLORED. DENIES PAIN. PLEASANT AND CONVERSATIONAL. ORIENTED TO ROOM. CALL LIGHT EXPLAINED AND PLACED WITHIN REACH, BED LOW.
[2019-06-03] MEDS ORDERED: ALBU90OI INH (11:38)
[2019-06-03] MEDS ORDERED: CAVERJECT IC (11:39)
[2019-06-03] MEDS ORDERED: Flonase 0.05% N16 GM (11:40)
[2019-06-03] MEDS ORDERED: PSEU120ER PO (11:41)
[2019-06-03] MEDS ORDERED: Cough Syru100 MG/5 M PO (11:41)
[2019-06-03 11:50] LABS: Troponin I 0.046 ng/mL (0.000-0.040)
--- NOTE | 2019-06-03 16:36 | NUR ---
SHIFT SUMMARY NO ACUTE CHANGES. PATIENT MEDCIATED X 2 FOR COUGH AND X1 FOR PAIN. PATIENT DENIES NAUSEA AND SHORTNESS OF BREATH. PATIENT UP INDEPENDENT IN THE ROOM. FAMILY AT BEDSIDE. ENT CONSULT CALLED, PATIENT TO SEE DR. ALONSO OUTPATIENT. LIKELY DISCHARGE TOMORROW. CALL LIGHT IN REACH.
[2019-06-03 19:32] LABS: Troponin I 0.038 ng/mL (0.000-0.040)
[2019-06-04] MEDS ORDERED: BENZ100A PO (08:32)
[2019-06-04] MEDS ORDERED: CODEINE-GUAIFE120 ML PO (08:32)
[2019-06-04] MEDS ORDERED: TRAM50 PO (09:20)
--- NOTE | 2019-06-04 10:10 | NUR ---
DISCHARGE DISCHARGE MEDICATIONS AND INSTRUCTIONS EXPLAINED TO PATIENT AND SPOUSE. FOLLOW UP WITH PCP SCHEDULED. PATIENT TO DRIVE DIRECTLY TO ENT FOLLOW UP AFTER DISCHARGE FROM [facility]. IV REMOVED WITHOUT DIFFICULTY. BELONGINGS WITH PATIENT. PATIENT TRANSFERED TO PRIVATE VEHICLE VIA WHEELCHAIR.
== END 2019-06-04 10:05 | disposition home or self-care (01) ==
LOC: ER 02:56 → MEDS 02:57 → ENPENDDIS 06-04 07:50 → MEDS 06-04 10:05
PROVIDERS: Emergency Medicine; ADMIT Internal Medicine
DX: I11.0 Hypertensive heart disease with heart failure (principal); I50.9 Heart failure, unspecified; R05 Cough; J38.3 Other diseases of vocal cords; R13.10 Dysphagia, unspecified; C85.90 Non-Hodgkin lymphoma, unspecified, unspecified site; N40.0 Benign prostatic hyperplasia without lower urinary tract symptoms; K57.30 Diverticulosis of large intestine without perforation or abscess without bleeding; Z79.899 Other long term (current) drug therapy; Z87.891 Personal history of nicotine dependence; Z79.2 Long term (current) use of antibiotics
CPT/HCPCS: 36415; 36600; 70491; 71045; 80053; 82550; 82803; 83880; 84484; 85025; 92610; 93005; 93010; 94644; J1650; J1940; Q9967

== ENCOUNTER 2020-12-08 10:04 | Inpatient (IN) | payer OTHER, MEDICARE ==
[~2020-12-08] VITALS: Ht 182.9 cm; Wt 112.1 kg
[~2020-12-08 10:04] MED LIST changes: +ABAT250V IV; +ALBU90OI INH; +BENZ100A PO; +CAVERJECT IC; +CODEINE-GUAIFE120 ML PO; +Cough Syru100 MG/5 M PO; +DILT30 PO; +Flomax0.4 MG PO; +Flonase 0.05% N16 GM; +OMEPRAZOLE20 MG PO; +PSEU120ER PO; +TRAM50 PO; +ZOLP5 PO
[2020-12-08 10:56] LABS: Hematocrit 35.5 % (37.0-53.0); Hemoglobin 11.8 g/dL (13.5-17.5); Mean Corpuscular HGB 27.3 pg (26.0-34.0); Mean Corpuscular HGB Conc 33.2 g/dL (31.5-36.5); Mean Corpuscular Volume 82 fL (80-100); Platelet Count 124 K/mm3 (150-400); RDW Coefficient Variation 15.4 % (11.7-14.2); RDW Standard Deviation 46.7 fL (35.1-46.3); Red Blood Cell Count 4.33 M/mm3 (4.30-5.90); White Blood Cell Count 5.41 K/mm3 (4.00-11.30)
[2020-12-08 11:22] LABS: Alanine Aminotransfer (ALT/SGP 18 U/L (12-78); Albumin, Blood 3.4 g/dL (3.4-5.0); Albumin/Globulin Ratio 0.9 (0.8-1.8); Alk Phos 121 U/L (50-136); Anion Gap 7 mmol/L (6-16); Aspartate Aminotrans (AST/SGOT 36 U/L (12-37); Bilirubin, Total 1.1 mg/dL (0.1-1.0); Blood Urea Nitrogen 15 mg/dL (8-24); Bun/Creatinine Ratio 13.5 (12.0-20.0); CO2, Blood 26 mmol/L (21-32); Calcium, Blood 8.5 mg/dL (8.5-10.1); Chloride, Blood 94 mmol/L (98-108); Creatinine, Blood 1.11 mg/dL (0.60-1.20); Globulin, Blood 3.8 g/dL (2.2-4.0); Glomerular Filtration Rate >60 (60-); Glucose, Blood 106 mg/dL (70-99); Potassium, Blood 3.9 mmol/L (3.5-5.5); Sodium, Blood 127 mmol/L (136-145); Total Protein, Blood 7.2 g/dL (6.4-8.2)
[2020-12-08 11:23] LABS: BAND PERCENT MAN 3 % (0-8); BASOPHILS ABSOLUTE MAN 0.05 K/mm3 (0.00-0.23); BASOPHILS PERCENT MAN 1 % (0-2); EOSINOPHILS PERCENT MAN 0 % (0-6); LYMPHOCYTES % ATYPICAL MANUAL 3 % (0-0); LYMPHOCYTES ABSOLUTE MAN 1.19 K/mm3 (0.84-5.20); LYMPHOCYTES PERCENT MAN 19 % (21-46); MONOCYTES ABSOLUTE MAN 0.32 K/mm3 (0.16-1.47); MONOCYTES PERCENT MAN 6 % (4-13); NEUTROPHILS ABSOLUTE MAN 3.84 K/mm3 (1.96-9.15); SEG NEUTROPHILS PERCENT MAN 68 % (41-73); TOTAL CELLS COUNTED 100
[2020-12-08 12:49] LABS: Source, Urine Clean Catch
[2020-12-08 12:55] LABS: Appearance, Urine Clear (Clear); Bilirubin, Urine Neg (Neg); Blood, Urine 2+ (Neg); Color, Urine Yellow (P-Yellow); Glucose Qualitative, Urine Neg (Neg); Ketones, Urine Neg (Neg); Leukocyte Esterase, Urine 1+ (Neg); Nitrite, Urine Neg (Neg); Protein, Urine 3+ (Neg); Urobilinogen, Urine 1+ (Normal)
[2020-12-08 13:05] LABS: Bacteria Rare /hpf; Granular Casts 0-2 /lpf (0); Mucus Mod (0-Heavy); Red Blood Cells, Urine 0-2 /hpf (0-2); Squamous Epithelial Cells Rare /hpf (Few); White Blood Cells, Urine 0-2 /hpf (0-5)
[2020-12-08 14:58] LABS: Adenovirus Not Detected (NOT DETECT); Bordetella pertussis Not Detected (NOT DETECT); Chlamydophila pneumoniae Not Detected (NOT DETECT); Coronavirus 229E Not Detected (NOT DETECT); Coronavirus HKU1 Not Detected (NOT DETECT); Coronavirus NL63 Not Detected (NOT DETECT); Coronavirus OC43 Not Detected (NOT DETECT); Human Metapneumovirus Not Detected (NOT DETECT); Human Rhinovirus/Enterovirus Not Detected (NOT DETECT); Influenza A/2009-H1 Not Detected (NOT DETECT); Influenza A/H1 Not Detected (NOT DETECT); Influenza A/H3 Not Detected (NOT DETECT); Influenza B Not Detected (NOT DETECT); Mycoplasma pneumoniae Not Detected (NOT DETECT); Parainfluenza Virus 1 Not Detected (NOT DETECT); Parainfluenza Virus 2 Not Detected (NOT DETECT); Parainfluenza Virus 3 Not Detected (NOT DETECT); Parainfluenza Virus 4 Not Detected (NOT DETECT); Respiratory Syncytial Virus Not Detected (NOT DETECT); SARS-Cov-2 (COVID-19), BioFire Not Detected (NOT DETECT)
[2020-12-08] MEDS ORDERED: Flonase 0.05% N16 GM (15:10)
[2020-12-08] MEDS ORDERED: Vitamin B-121000 MCG PO (15:10)
[2020-12-08] MEDS ORDERED: FOLI1 PO (15:10)
[2020-12-08] MEDS ORDERED: SPIRIVA RESPIMAT4 G3 INH (15:11)
[2020-12-08] MEDS ORDERED: FURO40 PO (15:11)
[2020-12-08] MEDS ORDERED: MIRTAZAPINE7.5 M1 PO (15:11)
[2020-12-08] MEDS ORDERED: MAGNESIUM OXID500 MG PO (15:11)
[2020-12-08] MEDS ORDERED: OMEP20ER PO (15:12)
[2020-12-08] MEDS ORDERED: ASMANEX220 M14 INH (15:12)
[2020-12-08] MEDS ORDERED: TAMS.4ER PO (15:12)
[2020-12-08] MEDS ORDERED: SILD50TA PO (15:12)
[2020-12-08] MEDS ORDERED: PYRI100 PO (15:12)
--- NOTE | 2020-12-08 19:54 | NUR ---
PT GAVE THIS STUDENT NURSE PERMISSION TO PROVIDE CARE ON 12/08/20.
--- NOTE | 2020-12-09 04:55 | NUR ---
SHIFT SUMMARY NO ACUTE CHANGES THIS SHIFT. MEDICATED PT X2 PER MAR FOR FEVER. PT STAYED WELL HYDRATED & IV FLUIDS; NS @ 100MLS/HR. O2 @ 2L PT SAT 96%. PT RESTED COMFARTABLY T/O THE NIGHT; PLEASANT TO CARE. CALL LIGHT WITHIN REACH & BED IN LOWEST POSITION. WILL CONITNUE TO MONITOR UNTIL DAY RN ARRIVES.
[2020-12-09 04:57] LABS: Hematocrit 32.1 % (37.0-53.0); Hemoglobin 10.6 g/dL (13.5-17.5); Mean Corpuscular HGB 26.8 pg (26.0-34.0); Mean Corpuscular Volume 81 fL (80-100); Platelet Count 97 K/mm3 (150-400); RDW Coefficient Variation 15.6 % (11.7-14.2); RDW Standard Deviation 46.5 fL (35.1-46.3); Red Blood Cell Count 3.96 M/mm3 (4.30-5.90); White Blood Cell Count 3.75 K/mm3 (4.00-11.30)
[2020-12-09 05:11] LABS: Anion Gap 8 mmol/L (6-16); Blood Urea Nitrogen 18 mg/dL (8-24); Bun/Creatinine Ratio 17.5 (12.0-20.0); CO2, Blood 25 mmol/L (21-32); Calcium, Blood 8.3 mg/dL (8.5-10.1); Chloride, Blood 98 mmol/L (98-108); Creatinine, Blood 1.03 mg/dL (0.60-1.20); Glomerular Filtration Rate >60 (60-); Glucose, Blood 105 mg/dL (70-99); Potassium, Blood 3.3 mmol/L (3.5-5.5); Sodium, Blood 131 mmol/L (136-145)
--- NOTE | 2020-12-09 12:14 | NUR ---
echocardiogram complete
--- NOTE | 2020-12-09 18:48 | NUR ---
SHIFT SUMMARY- PT IS A/O, PLESANT AND COOPERATIVE. HE IS EATING AND DRINKING WELL. PT HAD AN ELEVATED HR THIS SHIFT. GAVE IV PUSH AND ORDERED MOTROPROLOL. PT CONVERTED BACK TO SINUS AND HAS BEEN MAINTAINING IN THE 80'S. HE IS INDEPENDENT IN THE ROOM. HE IS RECIEVING IV FLUIDS. HIS IS AT THE BEDSIDE. HIS BED IS IN THE LOW POSITION AND CALL LIGHT IS WITHIN REACH.
--- NOTE | 2020-12-09 19:42 | NUR ---
PT GAVE THIS STUDENT NURSE PERMISSION TO PROVIDE CARE ON 12/09/20.
--- NOTE | 2020-12-10 05:01 | NUR ---
SHIFT SUMMARY NO ACUTE CHANGES THIS SHIFT. PT MAINTAINED WNL TEMP UNTIL 041; MEDICATED PER OCT. A&O x4;pPLEASANT&COOPERATIVE TO CARE. CALL LIGHT WITHIN REACH. WILL CONTINUE TO MONITOR.
[2020-12-10 05:38] LABS: Hemoglobin 9.9 g/dL (13.5-17.5); Mean Corpuscular HGB 27.4 pg (26.0-34.0); Mean Corpuscular Volume 83 fL (80-100); Mean Platelet Volume 11.7 fL (9.1-12.4); Platelet Count 83 K/mm3 (150-400); RDW Standard Deviation 49.3 fL (35.1-46.3); Red Blood Cell Count 3.61 M/mm3 (4.30-5.90); White Blood Cell Count 2.06 K/mm3 (4.00-11.30)
[2020-12-10 05:59] LABS: Anion Gap 6 mmol/L (6-16); Blood Urea Nitrogen 17 mg/dL (8-24); Bun/Creatinine Ratio 17.6 (12.0-20.0); CO2, Blood 27 mmol/L (21-32); Calcium, Blood 8.2 mg/dL (8.5-10.1); Chloride, Blood 100 mmol/L (98-108); Creatinine, Blood 0.97 mg/dL (0.60-1.20); Glomerular Filtration Rate >60 (60-); Glucose, Blood 95 mg/dL (70-99); Sodium, Blood 133 mmol/L (136-145)
--- NOTE | 2020-12-10 18:18 | NUR ---
SHIFT SUMMARY- PT IS A/O, PLESANT AND COOPERATIVE. HE IS EATING AND DRINKING WELL. IV FLUIDS WERE D/C THIS SHIFT. CONSULTATION TO DR. RADER CALLED. HIS WAS AT BEDSIDE THIS SHIFT. HE HAD ONE EPISODE OF ELEVATED TEMP, TREATED WITH IBUPROFIN. HIS BED IS IN THE LOW POSITION AND CALL LIGHT IS WITIN REACH.
[2020-12-11 04:59] LABS: Hematocrit 31.6 % (37.0-53.0); Hemoglobin 10.5 g/dL (13.5-17.5); Mean Corpuscular HGB 27.5 pg (26.0-34.0); Mean Corpuscular HGB Conc 33.2 g/dL (31.5-36.5); Mean Corpuscular Volume 83 fL (80-100); Mean Platelet Volume 11.6 fL (9.1-12.4); Platelet Count 85 K/mm3 (150-400); RDW Coefficient Variation 16.5 % (11.7-14.2); Red Blood Cell Count 3.82 M/mm3 (4.30-5.90); White Blood Cell Count 1.86 K/mm3 (4.00-11.30)
[2020-12-11 05:22] LABS: BAND PERCENT MAN 33 % (0-8); BASOPHILS PERCENT MAN 0 % (0-2); EOSINOPHILS PERCENT MAN 0 % (0-6); LYMPHOCYTES % ATYPICAL MANUAL 1 % (0-0); LYMPHOCYTES PERCENT MAN 21 % (21-46); METAMYELOCYTE ABSOLUTE MAN 0.01 K/mm3 (0.00-0.00); METAMYELOCYTE PERCENT MAN 1 % (0-0); MONOCYTES ABSOLUTE MAN 0.26 K/mm3 (0.16-1.47); MONOCYTES PERCENT MAN 14 % (4-13); NEUTROPHILS ABSOLUTE MAN 1.17 K/mm3 (1.96-9.15); SEG NEUTROPHILS PERCENT MAN 30 % (41-73); TOTAL CELLS COUNTED 100
--- NOTE | 2020-12-11 06:25 | NUR ---
SHIFT SUMMARY PT IN AFIB AT SHIFT START W/RATE IN 110'S; 2340 ADMIN IV METOP FOR RATES 121 @ REASSESS RATE WAS 128, NOTIFIED, ADMIN TOMZEM (1X ORDER) @ 0102, RATES HAVE BEEN IN 110'S SINCE ADMIN, RR INCREASED THIS SHIFT, MEDICATED 1X FOR TEMP 100.3 W/MOTRIN (REASSESS TEMP 98.2), SLEPT INTERMIT T/O THE NIGHT, SLEEPING AT THIS TIME, CALL LIGHT IN REACH, WILL CONT TO MONITOR UNTIL REPORT GIVEN TO DAY RN.
--- NOTE | 2020-12-12 04:44 | NUR ---
SHIFT SUMMARY NO ACUTE CHANGES THIS SHIFT, MEDICATED 1X FOR FEVER (102.8) W/MOTRIN- 99.1 @ REASSESS, NO OTHER C/O ANY KIND, SLEPT INTERMIT T/O THE NIGHT, SLEEPING AT THIS TIME, CALL LIGHT IN REACH, WILL CONT TO MONITOR UNTIL REPORT GIVEN TO DAY RN.
[2020-12-12 04:59] LABS: Hematocrit 30.2 % (37.0-53.0); Hemoglobin 9.8 g/dL (13.5-17.5); Mean Corpuscular HGB 26.6 pg (26.0-34.0); Mean Corpuscular HGB Conc 32.5 g/dL (31.5-36.5); Mean Corpuscular Volume 82 fL (80-100); Mean Platelet Volume 12.1 fL (9.1-12.4); Platelet Count 90 K/mm3 (150-400); RDW Coefficient Variation 16.9 % (11.7-14.2); RDW Standard Deviation 50.4 fL (35.1-46.3); Red Blood Cell Count 3.69 M/mm3 (4.30-5.90); White Blood Cell Count 2.15 K/mm3 (4.00-11.30)
[2020-12-12 05:15] LABS: Albumin, Blood 2.7 g/dL (3.4-5.0); Anion Gap 6 mmol/L (6-16); Blood Urea Nitrogen 20 mg/dL (8-24); Bun/Creatinine Ratio 17.5 (12.0-20.0); CO2, Blood 27 mmol/L (21-32); Calcium, Blood 9.5 mg/dL (8.5-10.1); Chloride, Blood 102 mmol/L (98-108); Creatinine, Blood 1.14 mg/dL (0.60-1.20); Glomerular Filtration Rate >60 (60-); Glucose, Blood 91 mg/dL (70-99); Magnesium, Blood 1.9 mg/dL (1.6-2.4); Phosphorus, Blood 2.6 mg/dL (2.5-4.9); Potassium, Blood 4.1 mmol/L (3.5-5.5); Sodium, Blood 135 mmol/L (136-145)
--- NOTE | 2020-12-13 06:50 | NUR ---
SHIFT SUMMARY NO ACUTE CHANGES THIS SHIFT, AFEBRILE T/O THE NIGHT, NO CHANGES ON TELE, SLEPT WELL THIS SHIFT & SLEEPING AT THIS TIME, CALL LIGHT IN REACH, WILL CONT TO MONITOR UNTIL REPORT GIVEN TO DAY RN.
[2020-12-13 06:59] LABS: Hematocrit 32.5 % (37.0-53.0); Hemoglobin 10.5 g/dL (13.5-17.5); Mean Corpuscular HGB 27.1 pg (26.0-34.0); Mean Corpuscular HGB Conc 32.3 g/dL (31.5-36.5); Mean Corpuscular Volume 84 fL (80-100); Mean Platelet Volume 12.7 fL (9.1-12.4); Platelet Count 87 K/mm3 (150-400); RDW Coefficient Variation 17.3 % (11.7-14.2); RDW Standard Deviation 53.2 fL (35.1-46.3); Red Blood Cell Count 3.88 M/mm3 (4.30-5.90); White Blood Cell Count 2.48 K/mm3 (4.00-11.30)
--- NOTE | 2020-12-13 18:23 | NUR ---
SHIFT SUMMARY PT AOX4; CALLS APPROPRIATELY. PT INDEPENDENT IN THE ROOM. PT DENIES PAIN. SOB ON EXERTION ON 2L OF PRN. NO OTHER CONCERNS NOTED TODAY. NO FEVER BED IS IN THE LOWEST POSITION AND CALL LIGHT WITHIN REACH
--- NOTE | 2020-12-13 18:43 | NUR ---
PT GAVE THIS STUDENT NURSE PERMISSION TO PROVIDE CARE ON 12/13/20.
[2020-12-14 04:54] LABS: Hematocrit 32.9 % (37.0-53.0); Hemoglobin 10.8 g/dL (13.5-17.5); Mean Corpuscular HGB 26.5 pg (26.0-34.0); Mean Corpuscular HGB Conc 32.8 g/dL (31.5-36.5); Mean Corpuscular Volume 81 fL (80-100); Mean Platelet Volume 11.4 fL (9.1-12.4); Platelet Count 103 K/mm3 (150-400); RDW Coefficient Variation 17.2 % (11.7-14.2); RDW Standard Deviation 50.7 fL (35.1-46.3); Red Blood Cell Count 4.08 M/mm3 (4.30-5.90); White Blood Cell Count 3.69 K/mm3 (4.00-11.30)
[2020-12-14 05:18] LABS: Albumin, Blood 2.6 g/dL (3.4-5.0); Anion Gap 5 mmol/L (6-16); Blood Urea Nitrogen 22 mg/dL (8-24); Bun/Creatinine Ratio 21.4 (12.0-20.0); CO2, Blood 29 mmol/L (21-32); Calcium, Blood 9.8 mg/dL (8.5-10.1); Chloride, Blood 103 mmol/L (98-108); Creatinine, Blood 1.03 mg/dL (0.60-1.20); Glomerular Filtration Rate >60 (60-); Glucose, Blood 95 mg/dL (70-99); Phosphorus, Blood 3.3 mg/dL (2.5-4.9); Potassium, Blood 4.1 mmol/L (3.5-5.5); Sodium, Blood 137 mmol/L (136-145)
--- NOTE | 2020-12-14 17:04 | NUR ---
PT AAOX4 PLEASANT AND COOPERATIVE WITH CARE. INDEPENDENT IN ROOM. DENIES PAIN. DENIES SOB. BARNETT IS RELIEVED BY REST. O2 2L PRN. RR EVEN AND UNLABORED AFEBRILE. PATENT IV L ARM SALINE LOCKED. NO MAJOR CHANGES. PT HAS NO MAJOR CONCERNS OR QUESTIONS. SPOUSE PRESENT AND SUPPORTIVE. WILL CONTINUE TO MONITOR UNTIL REPORT GIVEN TO NOC RN
--- NOTE | 2020-12-15 04:53 | NUR ---
SHIFT SUMMARY PT PLEASANT AND COOPERATIVE. AT START OF SHIFT PT STATED THAT HIS ABD WAS FEELING BLOATED. ABD IS DISTENDED, SOFT, AND NONTENDER. PT REPORTED THAT HE WAS UNABLE TO EAT ANY DINNER. SEVERAL HOURS AFTER PT STOPPED TRYING TO EAT HE STATED THAT HIS ABD WAS FEELING BETTER. STILL WITH SOME BLOATING BUT SOMEWHAT IMPROVED. DENIES ANY NAUSEA OR PAIN. PT 95% ON RA. PT INTERMITTENTLY INDEPENDENTLY PLACES O2 ON WHEN AMBULATING HE DOES HAVE SOB SOB W/ EXERTION. PT AFEBRILE THIS EVENING. SLEPT OFF AN ON. VITAL SIGNS STABLE. WILL CONTINUE TO MONITOR.
[2020-12-15 04:58] LABS: Hematocrit 30.7 % (37.0-53.0); Mean Corpuscular HGB 26.7 pg (26.0-34.0); Mean Corpuscular HGB Conc 32.6 g/dL (31.5-36.5); Mean Corpuscular Volume 82 fL (80-100); Mean Platelet Volume 11.3 fL (9.1-12.4); Platelet Count 124 K/mm3 (150-400); RDW Coefficient Variation 17.3 % (11.7-14.2); RDW Standard Deviation 51.6 fL (35.1-46.3); Red Blood Cell Count 3.75 M/mm3 (4.30-5.90); White Blood Cell Count 5.21 K/mm3 (4.00-11.30)
[2020-12-15] MEDS ORDERED: Acetaminophen325 M1 PO (15:17)
[2020-12-15] MEDS ORDERED: AMOCLA875 PO (15:17)
[2020-12-15] MEDS ORDERED: METO50ER PO (15:18)
[2020-12-15] MEDS ORDERED: ASPI81CH PO (15:18)
[2020-12-15] MEDS ORDERED: VISBIOME 112.51 EACH PO (15:19)
--- NOTE | 2020-12-15 16:30 | NUR ---
PT AAOX4. PLEASANT AND COOPERATIVE WITH CARE. DENIED PAIN, SOB. MILD BARNETT RELIEVED BY REST. RR EVEN AND UNLABORED ON RA. HOME O2 STUDY NEGATIVE. PT DISCHARGED TO HOME WITH SPOUSE. PT AND SPOUSE EDUCATED ON DISCHARGE MEDICATIONS AND INSTUCTIONS. BOTH ABLE TO VERBALIZE UNDERSTANDING RX FAXED TO [facility]. IV REMOVED WNL. PT TRANSPORTED BY TO [facility] AND ASSISTED INTO CAR.
== END 2020-12-15 16:05 | disposition home or self-care (01) | DRG 871 ==
LOC: ER 10:04 → MEDS 15:05 → ENPENDDIS 12-15 12:13 → MEDS 12-15 16:05
PROVIDERS: Emergency Medicine; Internal Medicine; Physician Assistant; ADMIT Internal Medicine
DX: A41.9 Sepsis, unspecified organism (principal); J18.9 Pneumonia, unspecified organism; I50.33 Acute on chronic diastolic (congestive) heart failure; C83.35 Diffuse large B-cell lymphoma, lymph nodes of inguinal region and lower limb; E87.1 Hypo-osmolality and hyponatremia; K52.1 Toxic gastroenteritis and colitis; N40.0 Benign prostatic hyperplasia without lower urinary tract symptoms; K21.9 Gastro-esophageal reflux disease without esophagitis; I11.0 Hypertensive heart disease with heart failure; Z20.822 Contact with and (suspected) exposure to COVID-19; G47.00 Insomnia, unspecified; E86.1 Hypovolemia; D69.6 Thrombocytopenia, unspecified; F32.9 Major depressive disorder, single episode, unspecified; T36.95XA Adverse effect of unspecified systemic antibiotic, initial encounter; I48.0 Paroxysmal atrial fibrillation; E87.70 Fluid overload, unspecified; Y92.239 Unspecified place in hospital as the place of occurrence of the external cause; Z90.49 Acquired absence of other specified parts of digestive tract; Z98.890 Other specified postprocedural states; Z95.828 Presence of other vascular implants and grafts; Z79.899 Other long term (current) drug therapy; Z79.51 Long term (current) use of inhaled steroids; Z92.21 Personal history of antineoplastic chemotherapy; Z87.891 Personal history of nicotine dependence
CPT/HCPCS: 0202U; 36415; 71045; 80048; 80053; 80069; 81001; 83605; 83615; 83690; 83735; 84145; 84484; 85025; 85027; 87040; 87086; 87449; 93005; 93010; 93306; 93356; 94640; 94760; 96361; 96365; 97161; 97165; 97530; 97535; 99285-25; A9270; J0456; J0696; J1650; J1940; J2543; J7030; J7050

== ENCOUNTER 2020-12-28 09:42 | Emergency (ER) | payer OTHER, MEDICARE ==
[~2020-12-28] VITALS: Ht 182.9 cm; Wt 104.3 kg
[~2020-12-28 09:42] MED LIST changes: +AMOCLA875 PO; +ASMANEX220 M14 INH; +ASPI81CH PO; +Acetaminophen325 M1 PO; +FOLI1 PO; +FURO40 PO; +MAGNESIUM OXID500 MG PO; +METO50ER PO; +MIRTAZAPINE7.5 M1 PO; +OMEP20ER PO; +PYRI100 PO; +SILD50TA PO; +SPIRIVA RESPIMAT4 G3 INH; +TAMS.4ER PO; +VISBIOME 112.51 EACH PO; +Vitamin B-121000 MCG PO
[2020-12-28 10:37] LABS: BASOPHILS PERCENT AUTO 0 % (0-2); EOSINOPHILS PERCENT AUTO 0 % (0-6); Hemoglobin 10.9 g/dL (13.5-17.5); IMMATURE GRAN ABSOLUTE AUTO 0.04 K/mm3 (0.00-0.10); IMMATURE GRAN PERCENT AUTO 1 % (0-1); LYMPHOCYTES ABSOLUTE AUTO 0.82 K/mm3 (0.84-5.20); LYMPHOCYTES PERCENT AUTO 12 % (21-46); MONOCYTES ABSOLUTE AUTO 0.33 K/mm3 (0.16-1.47); MONOCYTES PERCENT AUTO 5 % (4-13); Mean Corpuscular HGB 27.7 pg (26.0-34.0); Mean Corpuscular HGB Conc 32.1 g/dL (31.5-36.5); Mean Corpuscular Volume 86 fL (80-100); Mean Platelet Volume 10.3 fL (9.1-12.4); NEUTROPHILS PERCENT AUTO 83 % (41-73); Platelet Count 151 K/mm3 (150-400); RDW Coefficient Variation 18.6 % (11.7-14.2); RDW Standard Deviation 58.6 fL (35.1-46.3); Red Blood Cell Count 3.94 M/mm3 (4.30-5.90); White Blood Cell Count 7.09 K/mm3 (4.00-11.30)
[2020-12-28 10:55] LABS: Alanine Aminotransfer (ALT/SGP 71 U/L (12-78); Albumin, Blood 3.4 g/dL (3.4-5.0); Albumin/Globulin Ratio 1.1 (0.8-1.8); Alk Phos 103 U/L (50-136); Anion Gap 11 mmol/L (6-16); Aspartate Aminotrans (AST/SGOT 64 U/L (12-37); Bilirubin, Total 0.3 mg/dL (0.1-1.0); Blood Urea Nitrogen 28 mg/dL (8-24); Bun/Creatinine Ratio 29.9 (12.0-20.0); CO2, Blood 21 mmol/L (21-32); Calcium, Blood 8.7 mg/dL (8.5-10.1); Chloride, Blood 107 mmol/L (98-108); Creatinine, Blood 0.94 mg/dL (0.60-1.20); Globulin, Blood 3.2 g/dL (2.2-4.0); Glomerular Filtration Rate >60 (60-); Glucose, Blood 119 mg/dL (70-99); Potassium, Blood 4.1 mmol/L (3.5-5.5); Sodium, Blood 139 mmol/L (136-145); Total Protein, Blood 6.6 g/dL (6.4-8.2); Troponin I <0.015 ng/mL (0.000-0.040)
== END 2020-12-28 14:27 | disposition home or self-care (01) ==
LOC: ER 09:42
PROVIDERS: Emergency Medicine
DX: R00.1 Bradycardia, unspecified (principal); T45.1X5A Adverse effect of antineoplastic and immunosuppressive drugs, initial encounter; I10 Essential (primary) hypertension; Z79.899 Other long term (current) drug therapy; Z79.82 Long term (current) use of aspirin
CPT/HCPCS: 36415; 80053; 83880; 84484; 85025; 93005; 93010; 99284-25

== ENCOUNTER 2021-10-07 09:14 | Emergency (ER) | payer OTHER ==
[~2021-10-07] VITALS: Ht 182.9 cm; Wt 105.7 kg
[2021-10-07] MEDS ORDERED: ONDA4ODT MM (10:01)
== END 2021-10-07 10:20 | disposition home or self-care (01) ==
LOC: ER 09:14
DX: K12.0 Recurrent oral aphthae (principal); R11.0 Nausea; R63.4 Abnormal weight loss; C85.10 Unspecified B-cell lymphoma, unspecified site; I10 Essential (primary) hypertension; Z88.8 Allergy status to other drugs, medicaments and biological substances; Z79.899 Other long term (current) drug therapy; Z79.82 Long term (current) use of aspirin
CPT/HCPCS: 99282; A9270

== ENCOUNTER 2021-10-13 08:20 | Emergency (ER) | payer OTHER ==
[~2021-10-13] VITALS: Ht 182.9 cm; Wt 104.3 kg
[~2021-10-13 08:20] MED LIST changes: +ONDA4ODT MM
[2021-10-13] MEDS ORDERED: PAROEX473 ML MM (09:21)
== END 2021-10-13 09:35 | disposition home or self-care (01) ==
LOC: ER 08:20
DX: K12.0 Recurrent oral aphthae (principal); I10 Essential (primary) hypertension
CPT/HCPCS: 99282; A9270

== ENCOUNTER 2021-11-02 10:40 | Inpatient (IN) | payer OTHER ==
[~2021-11-02] VITALS: Ht 182.9 cm; Wt 92.0 kg
[~2021-11-02 10:40] MED LIST changes: +PAROEX473 ML MM
[2021-11-02 11:06] LABS: Hematocrit 36.2 % (37.0-53.0); Mean Corpuscular HGB 27.5 pg (26.0-34.0); Mean Corpuscular HGB Conc 33.1 g/dL (31.5-36.5); Mean Corpuscular Volume 83 fL (80-100); Mean Platelet Volume 10.8 fL (9.1-12.4); Platelet Count 201 K/mm3 (150-400); RDW Standard Deviation 49.9 fL (35.1-46.3); Red Blood Cell Count 4.37 M/mm3 (4.30-5.90)
[2021-11-02] MEDS ORDERED: CLOTRIMAZOLE10 M1 MT (11:30)
[2021-11-02] MEDS ORDERED: CLOT10 MT (11:30)
[2021-11-02] MEDS ORDERED: DIFLUCAN100 MG PO (11:31)
[2021-11-02] MEDS ORDERED: FLUC100 PO (11:32)
[2021-11-02] MEDS ORDERED: FLUT.05NI (11:33)
[2021-11-02] MEDS ORDERED: OMEP20ER PO (11:34)
[2021-11-02] MEDS ORDERED: PYRI100 PO (11:37)
[2021-11-02] MEDS ORDERED: SILD50TA PO (11:37)
[2021-11-02] MEDS ORDERED: SOLI5 (11:38)
[2021-11-02 11:41] LABS: Alanine Aminotransfer (ALT/SGP 107 U/L (12-78); Albumin, Blood 2.4 g/dL (3.4-5.0); Albumin/Globulin Ratio 0.6 (0.8-1.8); Alk Phos 425 U/L (50-136); Anion Gap 8 mmol/L (6-16); Aspartate Aminotrans (AST/SGOT 42 U/L (12-37); Bilirubin, Direct 0.3 mg/dL (0.0-0.3); Bilirubin, Indirect 0.4 mg/dL (0.1-0.7); Bilirubin, Total 0.7 mg/dL (0.1-1.0); Blood Urea Nitrogen 26 mg/dL (8-24); Bun/Creatinine Ratio 41.3 (12.0-20.0); CO2, Blood 24 mmol/L (21-32); Calcium, Blood 9.1 mg/dL (8.5-10.1); Chloride, Blood 104 mmol/L (98-108); Creatinine, Blood 0.63 mg/dL (0.60-1.20); Globulin, Blood 3.9 g/dL (2.2-4.0); Glomerular Filtration Rate >60 (60-); Glucose, Blood 95 mg/dL (70-99); Potassium, Blood 3.7 mmol/L (3.5-5.5); Sodium, Blood 136 mmol/L (136-145); Total Protein, Blood 6.3 g/dL (6.4-8.2)
[2021-11-02] MEDS ORDERED: ASMANEX220 M14 IH (11:43)
[2021-11-02 11:44] LABS: BAND PERCENT MAN 2 % (0-8); BASOPHILS PERCENT MAN 0 % (0-2); EOSINOPHILS PERCENT MAN 0 % (0-6); LYMPHOCYTES ABSOLUTE MAN 0.11 K/mm3 (0.84-5.20); LYMPHOCYTES PERCENT MAN 2 % (21-46); MONOCYTES ABSOLUTE MAN 0.41 K/mm3 (0.16-1.47); MONOCYTES PERCENT MAN 7 % (4-13); NEUTROPHILS ABSOLUTE MAN 5.36 K/mm3 (1.96-9.15); SEG NEUTROPHILS PERCENT MAN 89 % (41-73); TOTAL CELLS COUNTED 100
[2021-11-02] MEDS ORDERED: BENZ100A PO (15:14)
[2021-11-02] MEDS ORDERED: PRED20 PO (15:15)
--- NOTE | 2021-11-02 17:28 | NUR ---
ARRIVAL TO PCU/SHIFT SUMMARY PATIENT ARRIVED TO PCU FROM ED VIA GURNEY AT 1500. PATIENT IS ALERT AND ORIENTED X4. NEURO IS INTACT. PERRLA. VSS. TELE SR 80S. PATIENT REPORTS NO CHEST PAIN/PRESSURE. STRONG RADIAL AND PEDIS PULSES BILATERALLY. PATIENT REPORTS SHORTNESS OF BREATH WITH EXERTION. SPO2 >95% ON 4L NC. BASELINE THAT PATIENT HAS BEEN USING THE LAST WEEK IS 2L NC. PATIENT STATED THAT HE HAD OYXGEN NEEDED WHEN HE WAS DIAGNOSED WITH COVID THREE WEEKS AGO, BUT DIDN'T NEED IT UNTIL LAST WEEK. COARSE LUNG SOUNDS BILATERALLY. ABD SOFT NONTENDER. PATIENT STATES FREQUENCY WITH URINATION. BM TODAT AT HOME BEFORE DOCTOR APPOINTMENT. SKIN IS INTACT. PATIENT REPORTS NO PAIN. PATIENT AT BESIDE. NO ACUTE CHANGES SINCE ARRIVAL. THIS RN PROVIDED THERAPEUTIC COMMUNICATION AND ACTIVE LISTENING. ORIENTED TO ROOM, CALL LIGHT, AND HOW OFTEN WE DO VITALS AND NURSE ROUNDING. CALL LIGHT IS WITHIN REACH AND BED IN LOWEST POSITION. WILL CONTINUE TO MONITOR AND PROVIDE CARE UNTIL HAND OFF WITH NEXT SHIFT.
[2021-11-03 04:09] LABS: Hemoglobin 9.5 g/dL (13.5-17.5); Mean Corpuscular HGB 27.1 pg (26.0-34.0); Mean Corpuscular HGB Conc 32.8 g/dL (31.5-36.5); Mean Corpuscular Volume 83 fL (80-100); Mean Platelet Volume 11.9 fL (9.1-12.4); Platelet Count 168 K/mm3 (150-400); RDW Coefficient Variation 17.2 % (11.7-14.2); RDW Standard Deviation 50.4 fL (35.1-46.3); White Blood Cell Count 2.63 K/mm3 (4.00-11.30)
[2021-11-03 04:29] LABS: Alanine Aminotransfer (ALT/SGP 77 U/L (12-78); Albumin, Blood 2.1 g/dL (3.4-5.0); Albumin/Globulin Ratio 0.6 (0.8-1.8); Alk Phos 319 U/L (50-136); Anion Gap 7 mmol/L (6-16); Aspartate Aminotrans (AST/SGOT 23 U/L (12-37); Bilirubin, Total 0.5 mg/dL (0.1-1.0); Blood Urea Nitrogen 20 mg/dL (8-24); Bun/Creatinine Ratio 40.5 (12.0-20.0); CO2, Blood 24 mmol/L (21-32); Calcium, Blood 8.2 mg/dL (8.5-10.1); Chloride, Blood 105 mmol/L (98-108); Creatinine, Blood 0.49 mg/dL (0.60-1.20); Globulin, Blood 3.4 g/dL (2.2-4.0); Glomerular Filtration Rate >60 (60-); Glucose, Blood 139 mg/dL (70-99); Magnesium, Blood 1.7 mg/dL (1.6-2.4); Potassium, Blood 4.4 mmol/L (3.5-5.5); Sodium, Blood 136 mmol/L (136-145); Total Protein, Blood 5.5 g/dL (6.4-8.2)
[2021-11-03 05:17] LABS: BAND PERCENT MAN 1 % (0-8); BASOPHILS PERCENT MAN 0 % (0-2); EOSINOPHILS PERCENT MAN 0 % (0-6); LYMPHOCYTES ABSOLUTE MAN 0.02 K/mm3 (0.84-5.20); LYMPHOCYTES PERCENT MAN 1 % (21-46); MONOCYTES ABSOLUTE MAN 0.21 K/mm3 (0.16-1.47); MONOCYTES PERCENT MAN 8 % (4-13); NEUTROPHILS ABSOLUTE MAN 2.39 K/mm3 (1.96-9.15); SEG NEUTROPHILS PERCENT MAN 90 % (41-73); TOTAL CELLS COUNTED 100
--- NOTE | 2021-11-03 05:35 | NUR ---
SHIFT SUMMARY NO ACUTE CHANGES THIS SHIFT. PATIENT ALERT AND ORIENTED x4, ABLE TO MAKE NEEDS KNOWN TO STAFF. PLEASANT AND COOPERATIVE WITH CARE. VSS. TELE SR 70s, SB LOW 50s WHILE SLEEPING. PATIENT ON 3L NC WITH O2 SAT >90%. REPORTS MINIMAL SOB WITH EXERTION. USING URINAL AT BEDSIDE INDEPENDELTY. PATIENT SLEPT FOR MAJORITY OF NIGHT WITH NO COMPLAINTS. ABLE TO TURN SELF IN BED. WAS AT BEDSIDE UNTIL AROUND 2230, STATED SHE WILL BE BACK THIS MORNING TO BE WITH THE PATIENT. CALL LIGHT IN REACH, BED IN LOW POSITION. WILL REPORT TO DAY SHIFT RN.
[2021-11-03 08:56] LABS: Source, Urine Clean Catch
[2021-11-03 08:59] LABS: Bilirubin, Urine Neg (Neg); Blood, Urine Neg (Neg); Glucose Qualitative, Urine Neg (Neg); Ketones, Urine Neg (Neg); Leukocyte Esterase, Urine Neg (Neg); Nitrite, Urine Neg (Neg); Protein, Urine 1+ (Neg); Specific Gravity, Urine 1.015 (1.003-1.022); Urobilinogen, Urine NORM (Normal)
[2021-11-03 09:32] LABS: Appearance, Urine Clear (Clear); Color, Urine Yellow (P-Yellow)
--- NOTE | 2021-11-03 15:41 | NUR ---
UPDATE REPORT RECEIVED FROM THEO ALBERTO. ASSUMED CARE OF PT. PT ALERT AND ORIENTED. VS STABLE. O2 SATS REMAIN ABOVE 90% ON 6L NC. PT DENIES ANY PAIN. PT ABLE TO VOID USING THE URINAL AT THIS TIME. FAMIY AT BEDSIDE. PT DENIES ANY NEEDS AT THIS TIME. WILL CONTINUE TO MONITOR CLOSELY.
[2021-11-04 04:27] LABS: Hematocrit 36.2 % (37.0-53.0); Hemoglobin 11.5 g/dL (13.5-17.5); Mean Corpuscular HGB Conc 31.8 g/dL (31.5-36.5); Mean Corpuscular Volume 85 fL (80-100); Mean Platelet Volume 11.2 fL (9.1-12.4); Platelet Count 213 K/mm3 (150-400); RDW Coefficient Variation 17.8 % (11.7-14.2); RDW Standard Deviation 53.1 fL (35.1-46.3); Red Blood Cell Count 4.26 M/mm3 (4.30-5.90); White Blood Cell Count 6.42 K/mm3 (4.00-11.30)
[2021-11-04 04:49] LABS: Anion Gap 7 mmol/L (6-16); Blood Urea Nitrogen 15 mg/dL (8-24); Bun/Creatinine Ratio 29.8 (12.0-20.0); CO2, Blood 26 mmol/L (21-32); Calcium, Blood 8.6 mg/dL (8.5-10.1); Chloride, Blood 105 mmol/L (98-108); Glomerular Filtration Rate >60 (60-); Glucose, Blood 87 mg/dL (70-99); Potassium, Blood 3.6 mmol/L (3.5-5.5); Sodium, Blood 138 mmol/L (136-145)
--- NOTE | 2021-11-04 07:12 | NUR ---
SHIFT SUMMARY PT ORIENTED X4 OVERNIGHT, CALM AND COOPERATIVE. 0340 - PT CALLED OUT REQUESTING TO USE BATHROOM FOR BM. THIS RN ASSISTED HIM TO BATHROOM. PT STARTED HAVING COUGHING FIT AND WAS ESCORTED BACK TO BED. PT TACHYPNEIC, USE OF ACCESSORY MUSCLES. SPO2 PROBE REATTACHED AND PT WAS SATTING IN THE LOW 70S. HFNC TURNED UP TO 15L AND NRB PLACED ON PT. RT CALLED AND OTHER VITALS OBTAINED. HR IN 130S, SINUS TACH. PT PLACED ON TELEMETRY. BREATHING TX GIVEN PER RT AND PT PLACED ON AIRVO. OIL DIPPER PROVIDER DR. LA NOTIFIED AND ORDER FOR CXR, LESTER EDWARD X1 RECEIVED. NOTIFIED PROVIDER WHEN CXR RESULTED, ORDERED CT CHEST FOR PE R/O AND LOVENOX BID. PT STABLE ON AIRVO, DECREASED WORK OF BREATHING AND PT STATES HE FEELS BETTER. WILL PASS ON TO DAY RN,
--- NOTE | 2021-11-04 16:31 | NUR ---
END OF SHIFT SUMMARY: PATIENT HAS BEEN IMPROVING SINCE THE MORINING, NEGATIVE FOR PE'S, LOVENOX WAS ADJUSTED BY HOSP, OXYGEN DEMAND HAS BEEN IMPROVING THROUGH THE DAY FROM A 60L 85% ON AIRVO TO NOW PATIENT IS 50L 50% SPO2 >92% AT THIS TIME WILL CONTINUE TO MONITOR AT THIS TIME. DOES NEED INCREASED FIO2 WITH EXERTION WAS ABLE TO TRANSFER TO [facility] [place] %72% WITHOUT LARGE DESATURATION LIKE PREVIOUSLY IN THE NIGHT. BP HAS BEEN NORMOTENSIVE, WA FORM UPPER 50'S TO 90'S, WAS TACHY THIS AM. DENIES CHEST PAIN OR PRESSURE OR PALP'S. COUGH HAS BEEN CONTROLLED WITH COUGH SYRUP Q6 PRN, AND FAMILY HAVE BEEN AT THE BEDSIDE WHICH HELPS WITH ANXIETY WHICH HE HAS RARELY. VERY PLEASANT GENTLEMAN WHO IS ALERT AND ORIENTED.
[2021-11-05 04:51] LABS: Hematocrit 28.7 % (37.0-53.0); Hemoglobin 9.6 g/dL (13.5-17.5); Mean Corpuscular HGB 27.7 pg (26.0-34.0); Mean Corpuscular HGB Conc 33.4 g/dL (31.5-36.5); Mean Corpuscular Volume 83 fL (80-100); Mean Platelet Volume 10.3 fL (9.1-12.4); Platelet Count 155 K/mm3 (150-400); RDW Coefficient Variation 17.6 % (11.7-14.2); RDW Standard Deviation 51.4 fL (35.1-46.3); Red Blood Cell Count 3.46 M/mm3 (4.30-5.90); White Blood Cell Count 3.31 K/mm3 (4.00-11.30)
[2021-11-05 05:44] LABS: Anion Gap 4 mmol/L (6-16); Blood Urea Nitrogen 11 mg/dL (8-24); CO2, Blood 29 mmol/L (21-32); Calcium, Blood 8.3 mg/dL (8.5-10.1); Chloride, Blood 101 mmol/L (98-108); Creatinine, Blood 0.48 mg/dL (0.60-1.20); Glomerular Filtration Rate >60 (60-); Glucose, Blood 80 mg/dL (70-99); Potassium, Blood 4.4 mmol/L (3.5-5.5); Sodium, Blood 134 mmol/L (136-145)
--- NOTE | 2021-11-05 06:04 | NUR ---
End of shift summary Overnight without issues, 45L/ 50% with good sats all night, other VSS, will monitor REMY Bower
[2021-11-05 12:48] LABS: Adenovirus Not Detected (NOT DETECT); Coronavirus 229E Not Detected (NOT DETECT); Coronavirus HKU1 Not Detected (NOT DETECT); Coronavirus NL63 Not Detected (NOT DETECT); Coronavirus OC43 Not Detected (NOT DETECT); SARS-Cov-2 (COVID-19), BioFire Detected (NOT DETECT)
[2021-11-05 12:49] LABS: Bordetella pertussis Not Detected (NOT DETECT); Chlamydophila pneumoniae Not Detected (NOT DETECT); Human Metapneumovirus Not Detected (NOT DETECT); Human Rhinovirus/Enterovirus Not Detected (NOT DETECT); Influenza A/2009-H1 Not Detected (NOT DETECT); Influenza A/H1 Not Detected (NOT DETECT); Influenza A/H3 Not Detected (NOT DETECT); Influenza B Not Detected (NOT DETECT); Mycoplasma pneumoniae Not Detected (NOT DETECT); Parainfluenza Virus 1 Not Detected (NOT DETECT); Parainfluenza Virus 2 Not Detected (NOT DETECT); Parainfluenza Virus 3 Not Detected (NOT DETECT); Parainfluenza Virus 4 Not Detected (NOT DETECT); Respiratory Syncytial Virus Not Detected (NOT DETECT)
--- NOTE | 2021-11-05 19:34 | NUR ---
END OF SHIFT: NO ACUTE CHANGES FROM SHIFT SUMMARY THIS AM, MN IN PATIENTS NORMAL RANGE. SPO2 CURRENLTY AT 95% WITH AIRVO SETTINGS OF 45L AT 50%FIO2. PATIENT DID NEED MORE FIO2 WITH EXERTION BUT DID NOT DROP PAST 88 WHEN INCREASED FI02. PATIENT HAS BEEN EDUCATED AND ADVISED TO USE INCENTIVE SPIROMETRY AND CHANGING POSITIONS FREQUENTLY, ADDITIONALLY DID ENCOURAGE GOOD ORAL INTAKE, WHICH HE HAS BEEN IMPROVING AT. PATIENT HAS NEEDED COUGH SYRUP ALMOST SCHEDULED Q6, HE HAS BEEN IMPROVING OVERALLL AND ENDORSES THIS STATEMENT. ALSO, DENIES CHEST PAIN SOB AT REST, PATIENT HAS MULTIPLE VOIDS OF 150 OR LESS. NO CONCERNS AT THIS TIME REPORT HAS BEEN GIVEN TO ONCOMING RN.
--- NOTE | 2021-11-06 05:52 | NUR ---
End of shift summary Overnight went well, O2 needs slowly improving, and pt endorses he feels better, VSS, 45L/ 50%, will monitor REMY Bower
--- NOTE | 2021-11-06 18:48 | NUR ---
PT SUMMARY: NO ACUTE CHANGE FOR THE SHIFT, VITALS STABLE HRR SR AT 80-90'S, BP SYSTOLIC 115-120'S, REMAINS ON AIRVO SETTINGS 45L 60% FIO2 SATS KEPT ABOVE 90%, PT REQUIRING 70% FIO2 WHEN GETTING OUT OF BED TO USE COMMODE PT DESATS TO LOW 80'S MOSTLY WITH COUGHING SPITS PT RECOVERS AFTER 15MINS, COUGH MEDICINE GIVEN TWICE FOR THE SHIFT, PT SPITTING THIN WHITE MUCUS. GOOD APPETITE FOR THE SHIFT, DEEP BREATHING EXERCISES AND USE OF INCENTIVE SPIROMETER PROVIDED AND ROM EXERCISES IN BED, PT VERBALIZED UNDERSTANDING. USES URINAL FOR VOIDING, CALLS APPROPRIATELY, GOOD APPETITE AND FLUID INTAKE, HAD MBM FOR THE SHIFT. AT BEDSIDE ALL SHIFT, AWARE OF THE PLAN OF CARE. NO OTHER ISSUES ENCOUNTERED WILL REPORT TO OM=NCOMING SHIFT
--- NOTE | 2021-11-07 05:26 | NUR ---
END OF SHIFT SUMMARY Overnight went well, VSS, O2 needs decreasing 45L/ 45%, had a run of vtach without s/s, VSS afterwards and no CP or pressure, will continueto monitor REMY Bower
[2021-11-07 06:20] LABS: Hemoglobin 10.2 g/dL (13.5-17.5); Mean Corpuscular HGB 27.3 pg (26.0-34.0); Mean Corpuscular HGB Conc 32.9 g/dL (31.5-36.5); Mean Corpuscular Volume 83 fL (80-100); Mean Platelet Volume 12.2 fL (9.1-12.4); Platelet Count 185 K/mm3 (150-400); RDW Coefficient Variation 17.3 % (11.7-14.2); RDW Standard Deviation 51.6 fL (35.1-46.3); Red Blood Cell Count 3.73 M/mm3 (4.30-5.90)
[2021-11-07 06:39] LABS: Anion Gap 6 mmol/L (6-16); Blood Urea Nitrogen 15 mg/dL (8-24); Bun/Creatinine Ratio 29.2 (12.0-20.0); CO2, Blood 31 mmol/L (21-32); Calcium, Blood 8.6 mg/dL (8.5-10.1); Chloride, Blood 100 mmol/L (98-108); Creatinine, Blood 0.51 mg/dL (0.60-1.20); Glomerular Filtration Rate >60 (60-); Glucose, Blood 83 mg/dL (70-99); Potassium, Blood 4.5 mmol/L (3.5-5.5); Sodium, Blood 137 mmol/L (136-145)
--- NOTE | 2021-11-07 10:04 | NUR ---
AM NOTE PT CONVERTED TO AFIB AT AROUND 0930A THIS SHIFT RATE RANGING 120-130'S, BP SYSTOLIC 115, PT HAD COUGHING SPELLS WHEN HE CONVERTED, AIRVO TURNED UP TO 70% FIO2 UNTIL PT RECOVERED, COUGH SYRUP GIVEN WFE AT BEDSIDE OKAY TO HAVE PT TAKE COUGH DROPS PT REPORTS IT IS HELPING. NO OTHER ISSUES AT THIS TIME, ORAL CARE PROVIDED REPOSITIONED IN BED FOR COMFORT. ABLE TO MAKE NEEDS KNOWN CALL LIGHTS IN REACH
--- NOTE | 2021-11-07 11:16 | NUR ---
Patient is lying in bed and has spouse, Maribel Min, bedside. They tell me about his multiple medical issues and the plan of care going forward. They talk about their strong Chistian maria and how they lean on the connections to God, each other and their methodist family ([facility] [employer]). They talk about the gratitude they have for each day and the hope they have for the future no matter what happens. They exhibit great love and respect for each other. They also are very clear that they recognize the seriousness of his medical state and the emotional pain that comes with that. I encourage self-care, reinforce helpful attitudes and practices and provide therapeutic listening, pastoral addictions counselor assistant and prayer. Patient and Maribel Min respond well and show signs of increased peace and of being encouraged in their beliefs. I will continue to remain available to assist in the emotional/spiritual aspects of dealing with severe medical complications.
--- NOTE | 2021-11-07 18:51 | NUR ---
PT SUMMARY: PT IN AND OUT OF AFIB TODAY WILL CONVERT TO AFIB UP TO 150'S ON RATE IF PT STARTED HAVING COUGHING SPELLS, OR UPON GETTING UP IN THE BEDSIDE COMMODE RATE IS AT 90-110'S AT REST. PT STARTED ON PO METOPROLOL RATE HAS SUSTAINED ON THE 90'S SINUS RHYTHM UNTIL THE END OF SHIFT. PT TITRATED DOWN TO 45L 40% ON AIRVO SATS KEPT ABOVE 90%, STILL HAS SOB WITH EXERTION MOSTLY TOLERABLE TODAY RECOVERS QUICK, COUGH MEDICINE GIVEN TWICE FOR THE SHIFT. PT HAS GOOD APPETITE, ADEQUATE FLUID INTAKE, WAS AT THE BEDSIDE MOST OF THE SHIFT, RECEIVED A BED BATH TODAY. NO CHEST PAIN/PRESSURE REPORTED. NO OTHER ISSUES REPORTED FOR THE SHIFT, PT COMPLIANT WITH INCENTIVE SPIROMETER. CAN HELP TURN SELF IN BED, USES URINAL FOR VOIDING. ABLE TO MAKE NEEDS KNOWN, WILL REPORT TO ONCOMING SHIFT
--- NOTE | 2021-11-07 20:55 | NUR ---
CARE ASSUMPTION: RECEIVED REPORT FROM JAKE MARIA RN. PATIENT ASLEEP WITH AIRVO IN PLACE. O2 SATS >93% ON 45L/40%. CALL LIGHT WITHIN REACH.
--- NOTE | 2021-11-08 05:30 | NUR ---
SHIFT SUMMARY: PATIENT O2 SATS >94% ON 40L/47% T/O SHIFT. PATIENT SLEPT WELL, PLEASANT AND COOPERATIVE WITH CARE, CALL LIGHT IN REACH. BRADYCARDIC WHEN SLEEPING, OTHER VSS. WILL CONTINUE TO MONITOR AND REPORT TO ONCOMING RN.
--- NOTE | 2021-11-08 16:26 | NUR ---
TRANSFER OF CARE PT WAS PICKED UP BY TRANSPORT AT 1625. REPORT GIVEN TO [facility]. ATTEMPTED TO CALL IN REPORT TO RECEIVING FACILITY AND WAS ASKED TO CALL BACK FOR REPORT AFTER 1700. [employer], GAYLE Chinchilla, WAS NOTIFIED OF THIS REQUEST FROM RECEIVING FACILITY.
--- NOTE | 2021-11-08 17:35 | NUR ---
TRANSFER OF CARE REPORT CALLED TO RECEIVING FACILITY AT [id number].
== END 2021-11-08 16:25 | DRG 871 ==
LOC: ER 10:40 → PCU 13:04
PROVIDERS: Emergency Medicine; Internal Medicine; Nurse Practitioner Acute Care; ADMIT Internal Medicine
PROC: 3E03329 Introduction of Other Anti-infective into Peripheral Vein, Percutaneous Approach (ICD-10-PCS; principal; 2021-11-02)
PROC: 5A0955A Assistance with Respiratory Ventilation, Greater than 96 Consecutive Hours, High Flow/Velocity Cannula (ICD-10-PCS; 2021-11-04)
DX: A41.9 Sepsis, unspecified organism (principal); J18.9 Pneumonia, unspecified organism; J96.21 Acute and chronic respiratory failure with hypoxia; K57.32 Diverticulitis of large intestine without perforation or abscess without bleeding; C85.90 Non-Hodgkin lymphoma, unspecified, unspecified site; E87.1 Hypo-osmolality and hyponatremia; E87.2 Acidosis; Z20.822 Contact with and (suspected) exposure to COVID-19; N40.0 Benign prostatic hyperplasia without lower urinary tract symptoms; R65.20 Severe sepsis without septic shock; I50.9 Heart failure, unspecified; K21.9 Gastro-esophageal reflux disease without esophagitis; I48.0 Paroxysmal atrial fibrillation; D63.8 Anemia in other chronic diseases classified elsewhere; F32.A Depression, unspecified; D69.59 Other secondary thrombocytopenia; T45.1X5A Adverse effect of antineoplastic and immunosuppressive drugs, initial encounter; R13.10 Dysphagia, unspecified; I11.0 Hypertensive heart disease with heart failure; Z90.49 Acquired absence of other specified parts of digestive tract; Z98.890 Other specified postprocedural states; Z87.891 Personal history of nicotine dependence; Z86.16 Personal history of COVID-19
CPT/HCPCS: 0202U; 36415; 71045; 71260; 80048; 80053; 82248; 82947; 83605; 83735; 84145; 85025; 85027; 87040; 87449; 93005; 93010; 94640; 94644; 94664; 94760; 94762; 96365; 96375; 99285-25; A9270; C1751; J0456; J0696; J1650; J2930; J7030; J7050; J7120; J7512; Q9967